=== PATIENT | female | born 1945 | race Caucasian/White ===

== ENCOUNTER → 2018-06-24 | Outpatient (CLI) | payer MEDICARE, OTHER ==
[~2018-06-24] MED LIST: DOCU-109 PO; IBUP-1060 PO; MULT1TAB52 PO; OMEP40CA5 PO; OXYC1TAB15 PO; ROPI4TAB10 PO; VALS80TA3 PO
--- NOTE | 2018-06-24 13:06 | KCIC ---
EXAM: Lumbar spine, 3 views. HISTORY: Pain. COMPARISON: None. FINDINGS: Lateral neutral, flexion and extension views of the lumbar spine are obtained. There is grade 1 anterolisthesis of L4 and L5 which measures 5 mm in neutral position and increases to 7 mm with flexion and decreases to 4 mL with extension. There is 3 mm retrolisthesis of L2 on L3 and neutral position which decreases to 2 mm with flexion and does not change with extension. There is 2 mm retrolisthesis of L1 on L2 during extension. There is degenerative endplate remodeling with disc space narrowing, osteophytosis and facet arthropathy predominantly at L1-L2 and L5-S1. No fracture is seen. IMPRESSION: 1. Multilevel degenerative change throughout the lumbar spine, described in detail above. The findings are most significant at L1-L2 and L5-S1. 2. Grade 1 anterolisthesis of L4 on L5 which changes between flexion and extension. There is also minimal retrolisthesis of L2 on L3 which minimally changes during flexion and there is minimal retrolisthesis of L1 on L2 only during extension. 3. No acute osseous finding. Electronically signed by: Sirisha Sandoval MD (06/24/2018 1:03 PM) [place] [id number]
== END | disposition home or self-care (01) ==
LOC: KCIC 12:28
PROVIDERS: ATTEND Neurological Surgery
DX: M47.817 Spondylosis without myelopathy or radiculopathy, lumbosacral region (principal); M48.07 Spinal stenosis, lumbosacral region
CPT/HCPCS: 72100

== ENCOUNTER 2018-07-17 08:00 | Inpatient (IN) | payer MEDICARE, OTHER ==
--- NOTE | 2018-07-16 16:02 | PREOP HP ---
DATE OF SERVICE: 07/17/2018 James Barclay dictating for Dr. Richard Cabrera. HISTORY OF PRESENT ILLNESS: The patient is a pleasant 72-year-old who is having difficulty with low back pain along with pain, which radiates into her right hip. The pain can radiate into the lateral thigh. The problem has been present for a few years, but has worsened over the last year. She rates her pain as an 8/10. Standing and walking increase her discomfort. Sitting helps her. She feels when she stands or walks any distance, both legs can feel weak. She has not fallen. She takes Motrin. She has had physical therapy, which she said made her symptoms worse. Epidural steroid injections were done in 2018 and 2017. They gave her no benefit. PAST MEDICAL HISTORY: Arthritis, gout, hypertension, artificial knees. PAST SURGICAL HISTORY: Bilateral knee replacement, cataract surgery, hysterectomy, cervical fusion, bilateral lift, carpal tunnel release. FAMILY HISTORY: Cancer and hypertension. 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 . Smokes half pack of cigarettes per day and has for 50 years. Drinks alcohol 1-2 times per month. ALLERGIES: LATEX AND CODEINE. CURRENT MEDICATIONS: Motrin, Diovan, hydrochlorothiazide, ropinirole, omeprazole, multivitamin, aspirin. REVIEW OF SYSTEMS: A 12-point review of systems was obtained and is noncontributory except for that mentioned above. PHYSICAL EXAMINATION: NEUROSURGERY EXAMINATION: GENERAL APPEARANCE: Alert, pleasant, no acute distress. HEAD: Normocephalic and atraumatic. SKIN: Warm and dry. MUSCULOSKELETAL: Lumbar paraspinal muscle bulk is normal, restricted range of motion of the lumbar spine, [id number] tenderness of the lower lumbar spine with palpation, normal range of motion of the lower extremities, bilaterally. EXTREMITIES: No clubbing, cyanosis or edema. NEUROLOGIC: Alert and oriented x 3, normal recent and remote memory. Strength 5/5 in bilateral upper and lower extremities, sensory was intact to light touch in bilateral lower extremities, reflexes are present and symmetric in lower extremities bilaterally, negative straight leg raising bilaterally, normal gait. IMAGING: Reviewed. I reviewed her lumbar MRI scan from 05/30/2018. On that study, there is a grade 1 anterolisthesis seen at L4-L5. At L3-L4, there is severe central canal stenosis, which has progressed since her previous study, which was done in 08/2017. Additionally, at L4-L5, there is moderately severe central canal stenosis. ASSESSMENT: 1. Spinal stenosis, lumbar region with neurogenic claudication. 2. Spondylolisthesis, lumbar region. PLAN: She is having difficulties at L3-L4 and L4-L5, which I feel are reflected in her lower extremity symptoms. I am going to have her undergo lumbar flexion and extension films. At a minimum, she would require laminectomy at L3-L4 and L4-L5 to decompress her with regard to the lumbar spinal stenosis. If there is motion seen at L4-L5, she will in addition require an instrumented lumbar fusion. I did discuss this with her including the techniques of each, and the risks and expected postoperative course. She would like to proceed. We will make the arrangements. RICHARD CABRERA MD DR: ELIDIA/sharifa JOB#: [id number] / [id number]
[2018-07-17] VITALS (7 sets, daily range): BP systolic 120–137; BP diastolic 52–77
[~2018-07-17] VITALS: Ht 167.6 cm; Wt 86.6 kg
[~2018-07-17 08:00] MED LIST changes: +BACITRACIN 50,000 UNIT in IV NORMAL SALINE 1000ML BAG 1,000 ML IRR ONE; +BUPIVAC MPF-EPI 0.5%-1:200000 30 ML VIAL. ONE; -DOCU-109 PO; +GELATIN SPONGE SIZE 12-7MM SPONGE. ONE; +IV RINGERS,LACTATED 1000ML 1,000 ML IV SCH; +KETOROLAC 60 MG/2 ML INJ FOR OR. ONE; +LIDOCAINE 1% PF 2 ML VIAL. ID PRN; +ONDANSETRON PF 4 MG/2 ML VIAL. IV PRN; -OXYC1TAB15 PO; +PROCHLORPERAZINE 10 MG/2 ML VIAL. IV PRN; +THROMBIN TOPICAL 20,000 UNIT SPRAY.SYRN KIT TP ONE; +fentaNYL PF VIAL 100 MCG/2 ML VIAL IV PRN
[2018-07-17] MEDS ORDERED: PROPOFOL 200 ML IV ONE (08:33)
[2018-07-17] MEDS ORDERED: DEXAMETHASONE SOD PHOS 20 MG/5 ML VIAL. ONE (09:24)
[2018-07-17] MEDS ORDERED: FAMOTIDINE 20 MG/2 ML VIAL ONE (09:24)
[2018-07-17] MEDS ORDERED: PROPOFOL 20 ML IV ONE (09:24)
[2018-07-17] MEDS ORDERED: LIDOCAINE 2% PF 5 ML VIAL. ONE (09:24)
[2018-07-17] MEDS ORDERED: ONDANSETRON PF 4 MG/2 ML VIAL. ONE (09:24)
[2018-07-17] MEDS ORDERED: HYDROmorphone 2 MG/ML VIAL ONE (09:25)
[2018-07-17] MEDS ORDERED: fentaNYL PF VIAL 100 MCG/2 ML VIAL ONE ×2 (09:25→16:46)
[2018-07-17] MEDS ORDERED: REMIFENTANIL 2 MG VIAL. IV ONE ×2 (09:25→13:49)
[2018-07-17] MEDS ORDERED: ROCURONIUM 50 MG/5 ML VIAL. ONE (09:25)
[2018-07-17] MEDS ORDERED: MIDAZOLAM HCL/PF 2 MG/2 ML VIAL. ONE (09:25)
[2018-07-17] MEDS ORDERED: 0.9 % SODIUM CHLORIDE 20 ML VIAL. IJ ONE ×4 (09:29→13:49)
--- NOTE | 2018-07-17 10:32 | RAD ---
CT STUDY OF THE LUMBAR SPINE WITHOUT CONTRAST INDICATIONS: Back pain. Lumbar stenosis. TECHNIQUE: Noncontrast helical CT scanning of the lumbar spine was performed. Multiplanar 2-D reconstructions were generated. PQRS compliance Statement One or more of the following individualized dose reduction techniques were utilized for this study: 1. Automated exposure control 2. Adjustment of the mA and/or kV according to patient size 3. Use of iterative reconstruction technique FINDINGS: Mild levoscoliosis is seen. The transverse processes are intact. No compression fracture or discitis or lytic process is seen. No spondylolysis is seen. At T12-L1, degenerative disc space narrowing and endplate spurring and degenerative vacuum disc phenomenon is seen. No significant focal disc protrusion or spinal canal stenosis or neural foraminal narrowing is seen. At L1-L2, degenerative disc space narrowing and endplate spurring and degenerative vacuum disc phenomenon is seen. This is more prominent on the right side and extends into the inferior aspect of the right neural foramen. There is moderate narrowing of the right neural foramen. There is narrowing of the right lateral recess due to facet spurring and endplate spurring. No significant spinal canal stenosis is seen. At L2-3, mild retrolisthesis is seen. There is mild disc space narrowing and there is degenerative vacuum disc phenomenon with mild degenerative endplate spurring. There is a mild diffuse disc protrusion present. Degenerative facet arthropathy is evident. These findings combine to form a mild spinal canal stenosis. There is mild narrowing of the right neural foramen. At L3-4, mild degenerative endplate spurring and mild disc space narrowing is seen. There is degenerative vacuum disc phenomenon. There is a mild diffuse disc protrusion. There is degenerative facet arthropathy and ligamentum flavum hypertrophy. These findings combine to form a moderate to severe spinal canal stenosis. There is mild narrowing of the neural foramina bilaterally. At L4-5, grade 1 anterolisthesis is seen along with mild degenerative endplate spurring and diffuse disc protrusion. Degenerative vacuum disc phenomenon and space narrowing is seen on the left side. Degenerative facet nephropathy ligamentum flavum hypertrophy is seen. These findings combine to form a moderate to severe spinal canal stenosis. This is more severe on the left side. There is moderate narrowing of the left neural foramen. At L5-S1, degenerative endplate spurring and degenerative vacuum disc phenomenon and degenerative disc space narrowing is seen. There is a mild diffuse disc protrusion. Facet arthropathy and ligamentum flavum hypertrophy is seen. No significant spinal canal stenosis is seen. There is mild narrowing of the right neural foramen and moderate narrowing of the left neural foramen. IMPRESSION: Degenerative lumbar spondylosis and mild scoliosis. Multilevel spinal canal stenosis and neural foraminal narrowing as discussed above. There is moderate to severe spinal canal stenosis at L3-4 and L4-5. See discussion above for each level. Electronically signed by: Donald Duran MD (07/17/2018 10:29 AM) [facility]
[2018-07-17] MEDS ORDERED: GLYCOPYRROLATE 1 MG/5 ML VIAL. ONE (10:55)
[2018-07-17] MEDS ORDERED: ePHEDrine PF IN SALINE 50 MG/10 ML SYRINGE. IV ONE ×2 (11:02→15:46)
[2018-07-17] MEDS ORDERED: MAG HYDROX/ALUMINUM HYD/SIMETH 30 ML ORAL.SUSP PO PRN (13:15)
[2018-07-17] MEDS ORDERED: NALOXONE 0.4 MG/ML VIAL. IV PRN (13:15)
[2018-07-17] MEDS ORDERED: CALCIUM CARBONATE 500 MG TAB.CHEW PO PRN (13:15)
[2018-07-17] MEDS ORDERED: ONDANSETRON PF 4 MG/2 ML VIAL. IV PRN (13:15)
[2018-07-17] MEDS ORDERED: ACETAMINOPHEN 325 MG TABLET. PO PRN (13:15)
[2018-07-17] MEDS ORDERED: 0.9 % SODIUM CHLORIDE 10 ML DISP.SYRIN. IV PRN (13:15)
[2018-07-17] MEDS ORDERED: diphenhydrAMINE HCL 25 MG CAPSULE PO PRN (13:15)
[2018-07-17] MEDS ORDERED: MAGNESIUM HYDROXIDE 2,400 MG/30 ML ORAL.SUSP. PO PRN (13:15)
[2018-07-17] MEDS ORDERED: DESFLURANE > 120 MINUTES IH ONE (13:31)
[2018-07-17] MEDS ORDERED: ceFAZolin SODIUM 1 GM in IV DEXTROSE 5% 50 ML IV SCH (14:00)
[2018-07-17] MEDS ORDERED: ceFAZolin SODIUM 1 GM VIAL ONE ×2 (14:56)
[2018-07-17] MEDS ORDERED: NEOSTIGMINE METHYLSULFATE 5 MG/5 ML SYRINGE. ONE (15:38)
[2018-07-17] MEDS: fentaNYL PF VIAL 100 MCG/2 ML VIAL IV PRN ×2 (16:52→17:15)
--- NOTE | 2018-07-17 17:45 | NUR ---
Received from PACU per bed, alert & drowsy, lumbar dressing clean, dry & intact, states discomfort level ?06/04, unsure, ice pack to lumbar for pain, bilateral NONA & ALLEY hose for DVT prevention, IVF infusing into right, HERRERA, oriented to surroundings, family members at bedside, call light within reach, side rails x 2, see admission information.
[2018-07-17] MEDS: DOCUSATE SODIUM 100 MG CAPSULE. PO SCH (21:14)
[2018-07-17] MEDS: rOPINIRole 1 MG TABLET. PO SCH (21:15)
[2018-07-17] MEDS: POTASSIUM CL 20MEQ D5-0.45NACL 1,000 ML IV SCH (21:17)
[2018-07-17] MEDS: ceFAZolin SODIUM IV Push 1 GM VIAL. IVP SCH (22:37)
[2018-07-18] VITALS (8 sets, daily range): BP systolic 104–127; BP diastolic 45–77
[2018-07-18] MEDS: fentaNYL PF VIAL 100 MCG/2 ML VIAL IV PRN ×4 (01:31→12:57)
[2018-07-18] MEDS: POTASSIUM CL 20MEQ D5-0.45NACL 1,000 ML IV SCH (05:20)
[2018-07-18] MEDS: ceFAZolin SODIUM IV Push 1 GM VIAL. IVP SCH ×2 (06:54→15:28)
[2018-07-18] MEDS: PANTOPRAZOLE 40 MG TABLET.DR. PO SCH (07:13)
[2018-07-18] MEDS ORDERED: BENZOCAINE/MENTHOL LOZENGE. PO PRN (07:30)
[2018-07-18] MEDS ORDERED: ALBUTEROL SULFATE 2.5 MG/3 ML NEBU. NEB PRN (07:30)
[2018-07-18] MEDS: METHOCARBAMOL 750 MG TABLET PO PRN ×3 (08:47→20:50)
[2018-07-18] MEDS: DOCUSATE SODIUM 100 MG CAPSULE. PO SCH ×2 (08:47→20:50)
[2018-07-18] MEDS: MULTIVITAMIN with MINERAL TABLET. PO SCH (08:47)
[2018-07-18] MEDS: rOPINIRole 1 MG TABLET. PO SCH ×4 (08:48→20:50)
[2018-07-18] MEDS: LOSARTAN POTASSIUM 50 MG TABLET. PO SCH (08:54)
[2018-07-18] MEDS ORDERED: HYDROcodone/APAP 7.5/325MG 1 TAB TABLET PO PRN (09:00)
--- NOTE | 2018-07-18 12:36 | NUR ---
VAN following for discharge planning. Discussed with RN, pt from home with family. VAN met with pt and pt's daughter, Liana at pt request. Pt would like to go to [facility] for SNU if she is not doing better in the next few days. VAN advised pt would need 3 midnights, and advised of the holiday this Saturday, so it would be likely pt would discharge to SNU on Saturday. If pt is feeling better over the weekend she is agreeable to [facility] for therapy. VAN faxing notes to [facility] to give a heads up of a possible admit over the weekend. If pt discharges home over the weekend, she will be going to stay at her daughter, Liana's home at [facility] [place], [address]. RN notified. VAN will continue to follow.
--- NOTE | 2018-07-18 15:09 | PDOC ---
PROGRESS NOTES Subjective Subjective patient seen and examined at 1100 sitting up on side of bed back / incisional pain ambulated with PT Objective Objective Vital Signs Date Time Temp Pulse Resp B/P (MAP) Pulse Ox O2 Delivery O2 Flow Rate FiO2 07/18/18 13:32 Room Air 07/18/18 12:57 95 07/18/18 11:00 97.4 71 20 127/49 (75) 97.4 07/18/18 03:00 2.0 Intake and Output 07/18/18 06:59 Intake Total 2665 ml Output Total 1075 ml Balance 1590 ml Intake Oral 15 ml IV Total 2650 ml Output Urine Total 950 ml Estimated Blood Loss 125 ml Physical Exam General: Alert, Oriented X3, Cooperative MUSCULOSKELETAL: Other (HERRERA) Skin: Other (Dressing C,D,I) Plan Plan of Care encouraged increased activity as tolerated PT change PO pain medication LSO ordered Dr. Boothe consulted Comment Review of Relevant I have reviewed the following items melody (where applicable) has been applied. Medications Current Medications Ondansetron HCl (Zofran) 4 mg PRN Q6HRS PRN IV NAUSEA/VOMITING Last administered on 07/17/18at 08:51; Start 07/17/18 at 07:00; Stop 07/17/18 at 18:20; Status DC Fentanyl Citrate (Fentanyl 2ml Vial) 25 mcg PRN Q5MIN PRN IV MILD PAIN 1-3; Start 07/17/18 at 07:00; Stop 07/17/18 at 18:20; Status DC Fentanyl Citrate (Fentanyl 2ml Vial) 50 mcg PRN Q5MIN PRN IV MODERATE TO SEVERE PAIN Last administered on 07/17/18at 17:15; Start 07/17/18 at 07:00; Stop 07/17/18 at 18:20; Status DC Ringer's Solution 1,000 ml @ 30 mls/hr Q24H IV Last administered on 07/17/18at 08:42; Start 07/17/18 at 07:00; Stop 07/17/18 at 18:20; Status DC Lidocaine HCl (Xylocaine-Mpf 1% 2ml Vial) 2 ml PRN 1X PRN ID PRIOR TO IV START; Start 07/17/18 at 07:00; Stop 07/17/18 at 18:20; Status DC Prochlorperazine Edisylate (Compazine) 5 mg PACU PRN PRN IV NAUSEA, MRX1; Start 07/17/18 at 07:00; Stop 07/17/18 at 18:20; Status DC Bacitracin 93698 unit/Sodium Chloride 1,000 ml @ 1,000 mls/hr 1X ONCE IRR Last administered on 07/17/18 11:36; Start 07/17/18 at 06:00; Stop 07/17/18 at 06:59; Status DC Cefazolin Sodium/ Dextrose 50 ml @ 100 mls/hr 1X PREOP PRN IV PRIOR TO PROCEDURE; Start 07/17/18 at 06:00; Stop 07/17/18 at 18:00; Status DC Bupivacaine HCl/ Epinephrine Bitart (Sensorcain-Mpf Epi 0.5%-1:[id number]) 30 ml STK-MED ONCE .ROUTE Last administered on 07/17/18 11:36; Start 07/17/18 at 06:15; Stop 07/17/18 at 07:15; Status DC Gelatin (Gelfoam Size 12-7mm) 1 each STK-MED ONCE .ROUTE Last administered on 07/17/18 11:36; Start 07/17/18 at 06:15; Stop 07/17/18 at 07:15; Status DC Ketorolac Tromethamine (Toradol For Or Only) 60 mg STK-MED ONCE .ROUTE Last administered on 07/17/18 11:36; Start 07/17/18 at 06:15; Stop 07/17/18 at 07:15; Status DC Thrombin 20,000 unit STK-MED ONCE TP Last administered on 07/17/18 11:36; Start 07/17/18 at 06:15; Stop 07/17/18 at 07:15; Status DC Propofol 20 ml @ As Directed STK-MED ONCE IV ; Start 07/17/18 at 09:24; Stop 07/17/18 at 09:25; Status DC Lidocaine HCl (Lidocaine Pf 2% Vial) 5 ml STK-MED ONCE .ROUTE ; Start 07/17/18 at 09:24; Stop 07/17/18 at 09:25; Status DC Dexamethasone Sodium Phosphate (Decadron) 20 mg STK-MED ONCE .ROUTE ; Start 07/17/18 at 09:24; Stop 07/17/18 at 09:25; Status DC Famotidine (Pepcid Vial) 20 mg STK-MED ONCE .ROUTE ; Start 07/17/18 at 09:24; Stop 07/17/18 at :25; Status DC Ondansetron HCl (Zofran) 4 mg STK-MED ONCE .ROUTE ; Start 07/17/18 at 09:24; Stop 07/17/18 at 09:25; Status DC Fentanyl Citrate (Fentanyl 2ml Vial) 100 mcg STK-MED ONCE .ROUTE ; Start 07/17/18 at 09:25; Stop 07/17/18 at :; Status DC Rocuronium [place] (Zemuron) 50 mg STK-MED ONCE .ROUTE ; Start 07/17/18 at 09:25; Stop 07/17/18 at :; Status DC Hydromorphone HCl (Dilaudid) 2 mg STK-MED ONCE .ROUTE ; Start 07/17/18 at 09:25; Stop 07/17/18 at 09:26; Status DC Remifentanil HCl (Ultiva) 2 mg STK-MED ONCE IV ; Start 07/17/18 at 09:25; Stop 07/17/18 at 09:26; Status DC Midazolam HCl (Versed) 2 mg STK-MED ONCE .ROUTE ; Start 07/17/18 at 09:25; Stop 07/17/18 at 09:26; Status DC Sodium Chloride (SODIUM CHLORIDE 20ml) 20 ml STK-MED ONCE IJ ; Start 07/17/18 at 09:29; Stop 07/17/18 at 09:30; Status DC Sodium Chloride (SODIUM CHLORIDE 20ml) 20 ml STK-MED ONCE IJ ; Start 07/17/18 at 09:29; Stop 07/17/18 at 09:30; Status DC Propofol 200 ml @ As Directed STK-MED ONCE IV ; Start 07/17/18 at 08:33; Stop 07/17/18 at 09:34; Status DC Glycopyrrolate (Robinul) 1 mg STK-MED ONCE .ROUTE ; Start 07/17/18 at 10:55; Stop 07/17/18 at 10:56; Status DC Ephedrine Sulfate (ePHEDrine PF IN SALINE SYRINGE) 50 mg STK-MED ONCE IV ; Start 07/17/18 at 11:02; Stop 07/17/18 at 11:03; Status DC Multivitamins (Thera M Plus) 1 tab DAILY PO Last administered on 07/18/18 08:47; Start 07/18/18 at 09:00 Pantoprazole Sodium (Protonix) 40 mg DAILYAC PO Last administered on 07/18/18 07:13; Start 07/18/18 at 07:30 Ropinirole HCl (Requip) 4 mg QID PO Last administered on 07/18/18at 13:04; Start 07/17/18 at 21:00 Losartan Potassium (Cozaar) 50 mg DAILY PO ; Start 07/18/18 at 09:00 Fentanyl Citrate (Fentanyl 2ml Vial) 50 mcg PRN Q2HR PRN IV PAIN SEVERE 2ND CHOICE Last administered on 07/18/18at 12:57; Start 07/17/18 at 13:15 Acetaminophen (Tylenol) 650 mg PRN Q6HRS PRN PO HEADACHE / TEMP; Start 07/17/18 at 13:15 Al Hydroxide/Mg Hydroxide (Mylanta Plus Xs) 30 ml PRN Q3HRS PRN PO HEARTBURN / GAS; Start 07/17/18 at 13:15 Calcium Carbonate/ Glycine (Tums) 500 mg PRN Q3HRS PRN PO INDIGESTION; Start 07/17/18 at 13:15 Diphenhydramine HCl (Benadryl) 25 mg PRN Q6HRS PRN PO ITCHING; Start 07/17/18 at 13:15 Naloxone HCl (Narcan) 0.1 mg PRN Q2MIN PRN IV ADMIN; Start 07/17/18 at 13:15 Sodium Chloride (Normal Saline Flush) 3 ml QSHIFT PRN IV AFTER MEDS AND BLOOD DRAWS; Start 07/17/18 at 13:15 Potassium Chloride/Dextrose/ Sod Cl 1,000 ml @ 75 mls/hr [id number] IV Last administered on 07/17/18at 21:17; Start 07/17/18 at 16:00; Stop 07/18/18 at 10:19; Status DC Methocarbamol (Robaxin) 750 mg TID PRN PO MUSCLE SPASMS Last administered on 07/18/18 08:47; Start 07/17/18 at 13:15 Docusate Sodium (Colace) 100 mg BID PO Last administered on 5/24/19at 08:47; Start 07/17/18 at 21:00 Magnesium Hydroxide (Milk Of Magnesia) 2,400 mg PRN Q12HR PRN PO CONSTIPATION; Start 07/17/18 at 13:15 Ondansetron HCl (Zofran) 4 mg PRN Q6HRS PRN IV NAUESA, 1ST CHOICE; Start 07/17/18 at 13:15 Cefazolin Sodium 1 gm/Dextrose 50 ml @ 100 mls/hr Q8HRS IV ; Start 07/17/18 at 14:00; Stop 07/18/18 at 06:29; Status UNV Desflurane (Suprane) 90 ml STK-MED ONCE IH ; Start 07/17/18 at 13:31; Stop 07/17/18 at 13:32; Status DC Sodium Chloride (SODIUM CHLORIDE 20ml) 20 ml STK-MED ONCE IJ ; Start 07/17/18 at 13:49; Stop 07/17/18 at 13:50; Status DC Sodium Chloride (SODIUM CHLORIDE 20ml) 20 ml STK-MED ONCE IJ ; Start 07/17/18 at 13:49; Stop 07/17/18 at 13:50; Status DC Remifentanil HCl (Ultiva) 2 mg STK-MED ONCE IV ; Start 07/17/18 at 13:49; Stop 07/17/18 at 13:50; Status DC Cefazolin Sodium (Ancef) 1 gm STK-MED ONCE .ROUTE ; Start 07/17/18 at 14:56; Stop 07/17/18 at 14:57; Status DC Cefazolin Sodium (Ancef) 1 gm STK-MED ONCE .ROUTE ; Start 07/17/18 at 14:56; Stop 07/17/18 at 14:57; Status DC Neostigmine Methylsulfate (Neostigmine Methylsulfate) 5 mg STK-MED ONCE .ROUTE ; Start 07/17/18 at 15:38; Stop 07/17/18 at 15:39; Status DC Cefazolin Sodium (Ancef) 1 gm Q8H IVP Last administered on 07/18/18at 06:54; Start 07/17/18 at 23:00; Stop 07/18/18 at 15:01; Status DC Ephedrine Sulfate (ePHEDrine PF IN SALINE SYRINGE) 50 mg STK-MED ONCE IV ; Start 07/17/18 at 15:46; Stop 07/17/18 at 15:47; Status DC Fentanyl Citrate (Fentanyl 2ml Vial) 100 mcg STK-MED ONCE .ROUTE ; Start 07/17/18 at 16:46; Stop 07/17/18 at 16:47; Status DC Throat Lozenges (Cepacol Sore Throat Lozenge) 1 fili PRN Q2HRS PRN PO SORE THROAT Last administered on 07/18/18at 07:51; Start 07/18/18 at 07:30 Albuterol Sulfate (Ventolin Neb Soln) 2.5 mg PRN Q4HRS PRN NEB SHORTNESS OF B REATH Last administered on 07/18/18at 09:10; Start 07/18/18 at 07:30 Acetaminophen/ Hydrocodone Bitart (Lortab 7.5/325) 1 tab PRN Q4HRS PRN PO PAIN Last administered on 07/18/18at 10:55; Start 07/18/18 at 09:00; Stop 07/18/18 at 11:48; Status DC Oxycodone/ Acetaminophen (Percocet 5/325) 1 tab PRN Q4HRS PRN PO PAIN; Start 07/18/18 at 12:00 Oxycodone/ Acetaminophen (Percocet 5/325) 2 tab PRN Q4HRS PRN PO PAIN; Start 07/18/18 at 12:00 Active Scripts Active Reported Multivitamins (Multivitamin) 1 Each Tablet 1 Tab PO DAILY Ibuprofen 800 Mg Tablet 800 Mg PO PRN BID PRN Ropinirole Hcl 4 Mg Tablet 4 Mg PO QID Omeprazole 40 Mg Capsule. 1 Cap PO DAILY Diovan (Valsartan) 80 Mg Tablet 80 Mg PO DAILY Vitals/I & O Vital Sign - Last 24 Hours 07/17/18 07/17/18 07/17/18 07/17/18 16:20 16:20 16:35 16:50 Temp 98.5 98.5 Pulse 92 88 78 Resp 16 18 16 B/P (MAP) 117/59 133/63 132/65 Pulse Ox 100 100 96 O2 Delivery Mask Simple Mask Nasal Cannula Nasal Cannula O2 Flow Rate 8 8 2 2 07/17/18 07/17/18 07/17/18 07/17/18 16:52 17:05 17:15 17:15 Temp 98.5 98.5 Pulse 76 Resp 14 19 18 B/P (MAP) 134/64 Pulse Ox 94 96 97 O2 Delivery Nasal Cannula Nasal Cannula Nasal Cannula Nasal Cannula O2 Flow Rate 2.0 2 2.0 2 07/17/18 07/17/18 07/17/18 07/17/18 17:45 17:45 17:45 18:00 Temp 97.7 97.7 Pulse 75 78 B/P (MAP) 137/60 (85) 120/60 (80) Pulse Ox 96 O2 Delivery Nasal Cannula Nasal Cannula O2 Flow Rate 2.0 07/17/18 07/17/18 07/17/18 07/17/18 18:15 18:30 18:57 19:00 Temp 97.5 97.5 Pulse 85 86 84 78 Resp 20 B/P (MAP) 128/58 (81) 122/52 (75) 125/62 (83) 122/52 (75) Pulse Ox 96 96 O2 Delivery Nasal Cannula O2 Flow Rate 2.0 2.0 07/17/18 07/17/18 07/18/18 07/18/18 20:00 23:00 01:31 02:01 Temp 98.3 98.3 Pulse 77 Resp 20 18 18 B/P (MAP) 124/77 (93) Pulse Ox 93 O2 Delivery Room Air Nasal Cannula Room Air O2 Flow Rate 2.0 07/18/18 07/18/18 07/18/18 07/18/18 03:00 07:00 08:15 08:48 Temp 98.2 97.8 98.2 97.8 Pulse 71 70 Resp 20 20 B/P (MAP) 113/50 (71) 117/45 (69) Pulse Ox 96 95 O2 Delivery Nasal Cannula Room Air Room Air Room Air O2 Flow Rate 2.0 07/18/18 07/18/18 07/18/18 07/18/18 08:54 09:15 10:55 10:55 Pulse 70 B/P (MAP) 117/45 Pulse Ox 95 O2 Delivery Room Air Room Air Room Air 07/18/18 07/18/18 07/18/18 11:00 12:57 13:32 Temp 97.4 97.4 Pulse 71 Resp 20 B/P (MAP) 127/49 (75) Pulse Ox 95 95 O2 Delivery Room Air Room Air Room Air Intake and Output 07/17/18 07/17/18 07/18/18 14:59 22:59 06:59 Intake Total 50 ml 2615 ml Output Total 825 ml 250 ml Balance 50 ml 1790 ml -250 ml JUICE CABRERA MD July 18, 2018 15:09
[2018-07-18] MEDS: oxyCODONE/APAP 5/325 1 TAB TABLET PO PRN ×2 (15:27→20:51)
[2018-07-18] MEDS ORDERED: SENNOSIDES/DOCUSATE 8.6/50MG TABLET. PO PRN (16:15)
[2018-07-18] MEDS ORDERED: MAGNESIUM HYDROXIDE 2,400 MG/30 ML ORAL.SUSP. PO PRN (16:15)
--- NOTE | 2018-07-18 18:22 | OP ---
DATE OF SURGERY: 07/17/2018 PREOPERATIVE DIAGNOSES: Lumbar spinal stenosis L3-L4, L4-L5; spondylolisthesis, L4-L5. POSTOPERATIVE DIAGNOSES: Lumbar spinal stenosis L3-L4, L4-L5; spondylolisthesis, L4-L5, synovial cyst, right L3-L4. OPERATION PERFORMED: 1. Lumbar laminectomy, L3-L4 and L4-L5. 2. Removal of synovial cyst, right L3-L4. 3. Posterior instrumentation L3, L4, L5 with posterolateral fusion L3, L4, L5. 4. The operation was done with multimodality monitoring including EMG, stimulated EMG, SSEP, fluoroscopy, microscopic dissection, BrainLAB guidance. SURGEON: Richard Cabrera M.D. STATION SUPERINTENDENT: ALBANIA Espinal assisted with the surgery. She assisted with the decompression, the instrumentation and removal of synovial cyst. OPERATIVE INDICATIONS: The patient is a pleasant 72-year-old who developed increasing pain in her lower back and then pain in her right leg, which became very severe and failed to improve with physical therapy as well as epidural steroid injections. On imaging studies, she was found to have severe stenosis at L3-L4 and moderately severe stenosis at L4-L5 along with spondylolisthesis at L4-L5 and I recommended decompression and instrumentation. I spoke with her about the surgery, the risks, technique and expected postoperative course and she wished to go ahead. DESCRIPTION OF PROCEDURE: Following general endotracheal anesthesia, the patient was positioned prone on the Salazar table. Lumbar region prepped and draped in standard fashion. ALLEY hose and AV impulse boots were applied for DVT prophylaxis. A microscope was draped. Fluoroscopy was draped and brought into the field. Monitoring was established. Ancef 2 grams was given less than 1 hour prior to initiation of surgery and repeated at 4-hour intervals as necessary. Using fluoroscopic guidance, a midline incision was made from L3 through L5. I dissected down skin and subcutaneous tissue, reflected the paraspinal muscles and placed self-retaining retractors. I then brought in the high speed air drill with a conical bur and drilled away the spinous processes of L3, L4, and L5. I then switched to a matchstick type bur and drilled the lamina of L3, L4 and L5. I did leave a portion of the ring at the middle lamina at the mid portion of L4 where there was no stenosis beneath, but otherwise I had a wide decompression out into the facets bilaterally, decompressing the dura and the nerve roots. At L3-L4, there was a synovial cyst, which was densely adherent to the underlying dura and compressing the nerve roots, pushing them medially and I this from the dura and nerve root with micro instruments. Through the microscope using microscopic technique, I peeled away the synovial cyst and I fully decompressed the entire region. The disc was firm, no discectomy was warranted and the disc at L4-L5 was also firm. I did perform partial foraminotomies focusing slightly more on the right hand side, which was the most painful side. I irrigated copiously. I did use small amounts of bone wax as well as a bipolar cautery where necessary. I then initialized the BrainLAB by attaching it to the spinous process inferiorly and placed pedicle screws in L3, L4, L5, first on the left side and then on the right side and during this time, I also exposed the transverse processes and lateral facets and excoriated disc material and packed allograft and autograft bone into these regions after aspirating 20 mL of bone marrow and augmenting the autograft bone from the laminectomy with allograft bone. This was packed first in the left lateral gutter and then in the right lateral gutter and then using [employer] instrumentation, I placed 5.5 x 45 screws in L3, 6.5 screws in L4 and L5. Rods were placed and nuts were placed and torqued. The films looked excellent. I irrigated copiously with antibiotic solution. I then felt that I had an excellent decompression. The roots were free. The stenosis had resolved. I sequentially torqued the hardware and then closed the wound with absorbable suture. The skin was closed with 4-0 subcuticular stitch. I felt the surgery went very well. RICHARD CABRERA MD DR: ELIDIA/sharifa JOB#: [id number] / [id number] LEEROY
--- NOTE | 2018-07-19 01:09 | CONS ---
DATE OF CONSULTATION: 07/18/2018 ATTENDING PHYSICIAN: Richard Chiu M.D. REASON FOR CONSULTATION: The patient was seen at the request of Dr. Chiu for rehab evaluation. HISTORY OF PRESENT ILLNESS: This is a 72-year-old female with chronic lower back pain with radiation to her right hip area and lateral aspect of thigh, going on for a few years, worsened over the last year. The patient had gone through lumbar epidural steroid injection, without any lasting help. She feels like when she stands and walks any distance, both legs get weak; has not fallen. She takes Motrin. She had gone through physical therapy, which made symptoms worse. PAST MEDICAL HISTORY: Includes degenerative joint disease, status post bilateral total knee arthroplasty, gouty arthritis, hypertension, cataract surgery, hysterectomy, cervical spine fusion and bilateral carpal tunnel release. FAMILY HISTORY: Family history of carcinoma and hypertension. 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 The patient had 6 steps to get in the house, no railing. 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 Smokes half pack of cigarettes per day for the last 50 years. Drinks alcohol 1-2 times per month. ALLERGIES: KNOWN ALLERGIC TO LATEX AND CODEINE. The patient also admits not passing gas since surgery done yesterday, that is on 07/17/2018, cervical decompression laminectomy for treatment of lumbar spinal stenosis. Postoperatively, she admits some numbness and tingling, mostly over the lateral aspect of both thighs, which was not present before. She admits to some back pain. She received lumbar corset today and feels comfortable wearing it. The patient is being followed by Physical Therapy. Physical Therapy recommended her to go to [facility] for continued care, at least for a short period. The patient denies any trouble with urination. PHYSICAL EXAMINATION: Today revealed an elderly female. She is alert, oriented to place and person, follows commands appropriately. Moves all 4 extremities voluntarily, where she had 4+/5 grade muscle strength and deep tendon reflexes were 1 to 2+ and symmetrical, with absent right ankle jerk. She had decreased sensory perception over lateral femoral cutaneous nerve distribution in both thighs. The patient had dressing to her lumbar spine area. She had clinical evidence of degenerative joint disease of thumb carpometacarpal joint bilaterally, with some deformity of both thumbs. Negative Tinel sign over median nerve at the wrist and over ulnar at the wrist and elbow and negative Phalen sign at both wrists. The patient is independent with bed mobility and transfers and she walked slowly using a roller walker, with somewhat antalgic gait. She gets tired easily. She had diffuse tenderness to palpation over the lumbar spine area. Straight leg raising test is negative bilaterally. She had painful range of motion of both lower extremity joints. ASSESSMENT: Mobility and self-care limitation in a patient with continued back pain postoperatively, lumbar decompression laminectomy for treatment of lumbar spinal stenosis. Also, the patient with known hypertension, also presents with probable meralgia paresthetica of both thighs and obesity. 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 She might need short-term inpatient rehab at [facility] unless she feels more confident that she is able to perform those tasks with her stay in the next few days. Dr. Chiu, I appreciate asking me to participate in the care of this interesting patient. I will be glad to follow her with you as needed for her rehabilitation. AMY DECKER MD DR: ASTON/sharifa JOB#: [id number] / [id number]
[2018-07-19] MEDS: oxyCODONE/APAP 5/325 1 TAB TABLET PO PRN ×2 (02:45→09:48)
[2018-07-19 03:10] VITALS: BP 106/58
[2018-07-19] MEDS: PANTOPRAZOLE 40 MG TABLET.DR. PO SCH (05:41)
[2018-07-19 07:00] VITALS: BP 116/43
[2018-07-19] MEDS: MULTIVITAMIN with MINERAL TABLET. PO SCH (08:43)
[2018-07-19] MEDS: DOCUSATE SODIUM 100 MG CAPSULE. PO SCH ×2 (08:43→20:25)
[2018-07-19] MEDS: BISACODYL 5 MG TABLET.DR. PO SCH (08:44)
[2018-07-19] MEDS: LOSARTAN POTASSIUM 50 MG TABLET. PO SCH (09:00)
[2018-07-19] MEDS: rOPINIRole 1 MG TABLET. PO SCH ×4 (09:49→20:25)
--- NOTE | 2018-07-19 10:31 | PDOC ---
PROGRESS NOTES Subjective Subjective POD #2 up in chair right hip and leg pain significantly better back/ incisional pain better controlled Objective Objective Vital Signs Date Time Temp Pulse Resp B/P (MAP) Pulse Ox O2 Delivery O2 Flow Rate FiO2 07/19/18 09:48 Room Air 07/19/18 09:00 66 116/43 07/19/18 07:00 98.2 18 97 98.2 07/18/18 03:00 2.0 Intake and Output 07/19/18 07:00 Intake Total 1200 ml Output Total 200 ml Balance 1000 ml Intake Oral 1200 ml Output Urine Total 200 ml # Voids 3 Physical Exam General: Alert, Oriented X3, Cooperative MUSCULOSKELETAL: Other (HERRERA) Neuro: Normal speech Skin: Other (Dressing C,D,I, flat) Plan Plan of Care encouraged increased activity as tolerated PT Dr. Boothe following SNF next week Comment Review of Relevant I have reviewed the following items melody (where applicable) has been applied. Medications Current Medications Ondansetron HCl (Zofran) 4 mg PRN Q6HRS PRN IV NAUSEA/VOMITING Last administered on 07/17/18at 08:51; Start 07/17/18 at 07:00; Stop 07/17/18 at 18:20; Status DC Fentanyl Citrate (Fentanyl 2ml Vial) 25 mcg PRN Q5MIN PRN IV MILD PAIN 1-3; Start 07/17/18 at 07:00; Stop 07/17/18 at 18:20; Status DC Fentanyl Citrate (Fentanyl 2ml Vial) 50 mcg PRN Q5MIN PRN IV MODERATE TO SEVERE PAIN Last administered on 07/17/18at 17:15; Start 07/17/18 at 07:00; Stop 07/17/18 at 18:20; Status DC Ringer's Solution 1,000 ml @ 30 mls/hr Q24H IV Last administered on 07/17/18at 08:42; Start 07/17/18 at 07:00; Stop 07/17/18 at 18:20; Status DC Lidocaine HCl (Xylocaine-Mpf 1% 2ml Vial) 2 ml PRN 1X PRN ID PRIOR TO IV START; Start 07/17/18 at 07:00; Stop 07/17/18 at 18:20; Status DC Prochlorperazine Edisylate (Compazine) 5 mg PACU PRN PRN IV NAUSEA, MRX1; Start 07/17/18 at 07:00; Stop 07/17/18 at 18:20; Status DC Bacitracin 62288 unit/Sodium Chloride 1,000 ml @ 1,000 mls/hr 1X ONCE IRR Last administered on 07/17/18 11:36; Start 07/17/18 at 06:00; Stop 07/17/18 at 06:59; Status DC Cefazolin Sodium/ Dextrose 50 ml @ 100 mls/hr 1X PREOP PRN IV PRIOR TO PROCEDU RE; Start 07/17/18 at 06:00; Stop 07/17/18 at 18:00; Status DC Bupivacaine HCl/ Epinephrine Bitart (Sensorcain-Mpf Epi 0.5%-1:486524) 30 ml STK-MED ONCE .ROUTE Last administered on 07/17/18 11:36; Start 07/17/18 at 06:15; Stop 07/17/18 at 07:15; Status DC Gelatin (Gelfoam Size 12-7mm) 1 each STK-MED ONCE .ROUTE Last administered on 07/17/18 11:36; Start 07/17/18 at 06:15; Stop 07/17/18 at 07:15; Status DC Ketorolac Tromethamine (Toradol For Or Only) 60 mg STK-MED ONCE .ROUTE Last administered on 07/17/18 11:36; Start 07/17/18 at 06:15; Stop 07/17/18 at 07:15; Status DC Thrombin 20,000 unit STK-MED ONCE TP Last administered on 07/17/18 11:36; Start 07/17/18 at 06:15; Stop 07/17/18 at 07:15; Status DC Propofol 20 ml @ As Directed STK-MED ONCE IV ; Start 07/17/18 at 09:24; Stop 07/17/18 at 09:25; Status DC Lidocaine HCl (Lidocaine Pf 2% Vial) 5 ml STK-MED ONCE .ROUTE ; Start 07/17/18 at 09:24; Stop 07/17/18 at 09:25; Status DC Dexamethasone Sodium Phosphate (Decadron) 20 mg STK-MED ONCE .ROUTE ; Start 07/17/18 at 09:24; Stop 07/17/18 at 09:25; Status DC Famotidine (Pepcid Vial) 20 mg STK-MED ONCE .ROUTE ; Start 07/17/18 at 09:24; Stop 07/17/18 at 09:25; Status DC Ondansetron HCl (Zofran) 4 mg STK-MED ONCE .ROUTE ; Start 07/17/18 at 09:24; Stop 07/17/18 at 09:25; Status DC Fentanyl Citrate (Fentanyl 2ml Vial) 100 mcg STK-MED ONCE .ROUTE ; Start 07/17/18 at 09:25; Stop 07/17/18 at 09:26; Status DC Rocuronium [place] (Zemuron) 50 mg STK-MED ONCE .ROUTE ; Start 07/17/18 at 09:25; Stop 07/17/18 at 09:; Status DC Hydromorphone HCl (Dilaudid) 2 mg STK-MED ONCE .ROUTE ; Start 07/17/18 at 09:25; Stop 07/17/18 at 09:26; Status DC Remifentanil HCl (Ultiva) 2 mg STK-MED ONCE IV ; Start 07/17/18 at 09:25; Stop 07/17/18 at 09:26; Status DC Midazolam HCl (Versed) 2 mg STK-MED ONCE .ROUTE ; Start 07/17/18 at 09:25; Stop 07/17/18 at 09:26; Status DC Sodium Chloride (SODIUM CHLORIDE 20ml) 20 ml STK-MED ONCE IJ ; Start 07/17/18 at 09:29; Stop 07/17/18 at 09:30; Status DC Sodium Chloride (SODIUM CHLORIDE 20ml) 20 ml STK-MED ONCE IJ ; Start 07/17/18 at 09:29; Stop 07/17/18 at 09:30; Status DC Propofol 200 ml @ As Directed STK-MED ONCE IV ; Start 07/17/18 at 08:33; Stop 07/17/18 at 09:34; Status DC Glycopyrrolate (Robinul) 1 mg STK-MED ONCE .ROUTE ; Start 07/17/18 at 10:55; Stop 07/17/18 at 10:56; Status DC Ephedrine Sulfate (ePHEDrine PF IN SALINE SYRINGE) 50 mg STK-MED ONCE IV ; S tart 07/17/18 at 11:02; Stop 07/17/18 at 11:03; Status DC Multivitamins (Thera M Plus) 1 tab DAILY PO Last administered on 07/19/18 08:43; Start 07/18/18 at 09:00 Pantoprazole Sodium (Protonix) 40 mg DAILYAC PO Last administered on 07/19/18 05:41; Start 07/18/18 at 07:30 Ropinirole HCl (Requip) 4 mg QID PO Last administered on 07/19/18 09:49; Start 07/17/18 at 21:00 Losartan Potassium (Cozaar) 50 mg DAILY PO ; Start 07/18/18 at 09:00 Fentanyl Citrate (Fentanyl 2ml Vial) 50 mcg PRN Q2HR PRN IV PAIN SEVERE 2ND CHOICE Last administered on 07/18/18at 12:57; Start 07/17/18 at 13:15 Acetaminophen (Tylenol) 650 mg PRN Q6HRS PRN PO HEADACHE / TEMP; Start 07/17/18 at 13:15 Al Hydroxide/Mg Hydroxide (Mylanta Plus Xs) 30 ml PRN Q3HRS PRN PO HEARTBURN / GAS; Start 07/17/18 at 13:15 Calcium Carbonate/ Glycine (Tums) 500 mg PRN Q3HRS PRN PO INDIGESTION; Start 07/17/18 at 13:15 Diphenhydramine HCl (Benadryl) 25 mg PRN Q6HRS PRN PO ITCHING; Start 07/17/18 at 13:15 Naloxone HCl (Narcan) 0.1 mg PRN Q2MIN PRN IV ADMIN; Start 07/17/18 at 13:15 Sodium Chloride (Normal Saline Flush) 3 ml QSHIFT PRN IV AFTER MEDS AND BLOOD DRAWS; Start 07/17/18 at 13:15 Potassium Chloride/Dextrose/ Sod Cl 1,000 ml @ 75 mls/hr [id number] IV Last administered on 07/17/18at 21:17; Start 07/17/18 at 16:00; Stop 07/18/18 at 10:19; Status DC Methocarbamol (Robaxin) 750 mg TID PRN PO MUSCLE SPASMS Last administered on at 20:50; Start 07/17/18 at 13:15 Docusate Sodium (Colace) 100 mg BID PO Last administered on 5/25/19at 08:43; Start 07/17/18 at 21:00 Magnesium Hydroxide (Milk Of Magnesia) 2,400 mg PRN Q12HR PRN PO CONSTIPATION; Start 07/17/18 at 13:15 Ondansetron HCl (Zofran) 4 mg PRN Q6HRS PRN IV NAUESA, 1ST CHOICE; Start 07/17/18 at 13:15 Cefazolin Sodium 1 gm/Dextrose 50 ml @ 100 mls/hr Q8HRS IV ; Start 07/17/18 at 14:00; Stop 07/18/18 at 06:29; Status UNV Desflurane (Suprane) 90 ml STK-MED ONCE IH ; Start 07/17/18 at 13:31; Stop 07/17/18 at 13:32; Status DC Sodium Chloride (SODIUM CHLORIDE 20ml) 20 ml STK-MED ONCE IJ ; Start 07/17/18 at 13:49; Stop 07/17/18 at 13:50; Status DC Sodium Chloride (SODIUM CHLORIDE 20ml) 20 ml STK-MED ONCE IJ ; Start 07/17/18 at 13:49; Stop 07/17/18 at 13:50; Status DC Remifentanil HCl (Ultiva) 2 mg STK-MED ONCE IV ; Start 07/17/18 at 13:49; Stop 07/17/18 at 13:50; Status DC Cefazolin Sodium (Ancef) 1 gm STK-MED ONCE .ROUTE ; Start 07/17/18 at 14:56; Stop 07/17/18 at 14:57; Status DC Cefazolin Sodium (Ancef) 1 gm STK-MED ONCE .ROUTE ; Start 07/17/18 at 14:56; Stop 07/17/18 at 14:57; Status DC Neostigmine Methylsulfate (Neostigmine Methylsulfate) 5 mg STK-MED ONCE .ROUTE ; Start 07/17/18 at 15:38; Stop 07/17/18 at 15:39; Status DC Cefazolin Sodium (Ancef) 1 gm Q8H IVP Last administered on 07/18/18at 15:28; Start 07/17/18 at 23:00; Stop 07/18/18 at 15:01; Status DC Ephedrine Sulfate (ePHEDrine PF IN SALINE SYRINGE) 50 mg STK-MED ONCE IV ; Start 07/17/18 at 15:46; Stop 07/17/18 at 15:47; Status DC Fentanyl Citrate (Fentanyl 2ml Vial) 100 mcg STK-MED ONCE .ROUTE ; Start 07/17/18 at 16:46; Stop 07/17/18 at 16:47; Status DC Throat Lozenges (Cepacol Sore Throat Lozenge) 1 fili PRN Q2HRS PRN PO SORE THROAT Last administered on 07/18/18at 07:51; Start 07/18/18 at 07:30 Albuterol Sulfate (Ventolin Neb Soln) 2.5 mg PRN Q4HRS PRN NEB SHORTNESS OF BREATH Last administered on 07/18/18at 09:10; Start 07/18/18 at 07:30 Acetaminophen/ Hydrocodone Bitart (Lortab 7.5/325) 1 tab PRN Q4HRS PRN PO PAIN Last administered on 07/18/18at 10:55; Start 07/18/18 at 09:00; Stop 07/18/18 at 11:48; Status DC Oxycodone/ Acetaminophen (Percocet 5/325) 1 tab PRN Q4HRS PRN PO PAIN Last administered on 07/18/18at 15:27; Start 07/18/18 at 12:00 Oxycodone/ Acetaminophen (Percocet 5/325) 2 tab PRN Q4HRS PRN PO PAIN Last administered on 07/19/18at 09:48; Start 07/18/18 at 12:00 Bisacodyl (Dulcolax Tab) 10 mg DAILY PO Last administered on 07/19/18at 08:44; Start 07/19/18 at 09:00 Magnesium Hydroxide (Milk Of Magnesia) 2,400 mg PRN DAILY PRN PO CONSTIPATION; Start 07/18/18 at 16:15 Senna/Docusate Sodium (Senna Plus) 1 tab PRN BID PRN PO CONSTIPATION; Start 07/18/18 at 16:15 Active Scripts Active Reported Multivitamins (Multivitamin) 1 Each Tablet 1 Tab PO DAILY Ibuprofen 800 Mg Tablet 800 Mg PO PRN BID PRN Ropinirole Hcl 4 Mg Tablet 4 Mg PO QID Omeprazole 40 Mg Capsule.dr 1 Cap PO DAILY Diovan (Valsartan) 80 Mg Tablet 80 Mg PO DAILY Vitals/I & O Vital Sign - Last 24 Hours 07/18/18 07/18/18 07/18/18 07/18/18 10:55 10:55 11:00 12:57 Temp 97.4 97.4 Pulse 71 Resp 20 B/P (MAP) 127/49 (75) Pulse Ox 95 95 O2 Delivery Room Air Room Air Room Air Room Air 07/18/18 07/18/18 07/18/18 07/18/18 13:32 15:00 15:27 16:39 Temp 97.8 97.8 Pulse 70 Resp 18 B/P (MAP) 105/48 (67) Pulse Ox 96 95 O2 Delivery Room Air Room Air Room Air Room Air 07/18/18 07/18/18 07/18/18 07/18/18 19:00 20:00 20:51 22:36 Temp 99.3 98.3 99.3 98.3 Pulse 67 61 Resp 18 18 B/P (MAP) 108/52 (70) 104/47 (66) Pulse Ox 94 94 O2 Delivery Room Air Room Air Room Air Room Air 07/19/18 07/19/18 07/19/18 07/19/18 02:45 03:10 03:45 07:00 Temp 98.2 98.2 98.2 98.2 Pulse 63 66 Resp 18 18 B/P (MAP) 106/58 (74) 116/43 (67) Pulse Ox 98 97 O2 Delivery Room Air Room Air Room Air Room Air 07/19/18 07/19/18 09:00 09:48 Pulse 66 B/P (MAP) 116/43 O2 Delivery Room Air Intake and Output 07/18/18 07/18/18 07/19/18 15:00 23:00 07:00 Intake Total 560 ml 340 ml 300 ml Output Total 200 ml Balance 360 ml 340 ml 300 ml JUICE CABRERA MD July 19, 2018 10:31
[2018-07-19] MEDS: fentaNYL PF VIAL 100 MCG/2 ML VIAL IV PRN (10:58)
[2018-07-19 11:00] VITALS: BP 94/49
--- NOTE | 2018-07-19 11:39 | PDOC ---
PROGRESS NOTES Subjective Subjective She admits continued back pain and numbness of lateral aspect of both thighs and not passing gases yet. Objective Objective Vital Signs Date Time Temp Pulse Resp B/P (MAP) Pulse Ox O2 Delivery O2 Flow Rate FiO2 07/19/18 10:58 Room Air 07/19/18 09:00 66 116/43 07/19/18 07:00 98.2 18 97 98.2 07/18/18 03:00 2.0 Intake and Output 07/19/18 07:00 Intake Total 1200 ml Output Total 200 ml Balance 1000 ml Intake Oral 1200 ml Output Urine Total 200 ml # Voids 3 Physical Exam Physical Exam She is alert,sitting in bedside chair and had lumbar corset higher in her low back and she continues with decreased sensory perception ove lateral femoral cutaneous nerve distribution.She is walking with roller walker under supervision. Plan Plan of Care To continue physical and occupational therapy follow up and to SNF when medically stable. Comment Review of Relevant I have reviewed the following items melody (where applicable) has been applied. Medications Current Medications Ondansetron HCl (Zofran) 4 mg PRN Q6HRS PRN IV NAUSEA/VOMITING Last administered on 07/17/18at 08:51; Start 07/17/18 at 07:00; Stop 07/17/18 at 18:20; Status DC Fentanyl Citrate (Fentanyl 2ml Vial) 25 mcg PRN Q5MIN PRN IV MILD PAIN 1-3; Start 07/17/18 at 07:00; Stop 07/17/18 at 18:20; Status DC Fentanyl Citrate (Fentanyl 2ml Vial) 50 mcg PRN Q5MIN PRN IV MODERATE TO SEVERE PAIN Last administered on 07/17/18at 17:15; Start 07/17/18 at 07:00; Stop 07/17/18 at 18:20; Status DC Ringer's Solution 1,000 ml @ 30 mls/hr Q24H IV Last administered on 07/17/18at 08:42; Start 07/17/18 at 07:00; Stop 07/17/18 at 18:20; Status DC Lidocaine HCl (Xylocaine-Mpf 1% 2ml Vial) 2 ml PRN 1X PRN ID PRIOR TO IV START; Start 07/17/18 at 07:00; Stop 07/17/18 at 18:20; Status DC Prochlorperazine Edisylate (Compazine) 5 mg PACU PRN PRN IV NAUSEA, MRX1; Start 07/17/18 at 07:00; Stop 07/17/18 at 18:20; Status DC Bacitracin 99953 unit/Sodium Chloride 1,000 ml @ 1,000 mls/hr 1X ONCE IRR Last administered on 07/17/18 11:36; Start 07/17/18 at 06:00; Stop 07/17/18 at 06:59; Status DC Cefazolin Sodium/ Dextrose 50 ml @ 100 mls/hr 1X PREOP PRN IV PRIOR TO PROCEDURE; Start 07/17/18 at 06:00; Stop 07/17/18 at 18:00; Status DC Bupivacaine HCl/ Epinephrine Bitart (Sensorcain-Mpf Epi 0.5%-1:554614) 30 ml STK-MED ONCE .ROUTE Last administered on 07/17/18 11:36; Start 07/17/18 at 06:15; Stop 07/17/18 at 07:15; Status DC Gelatin (Gelfoam Size 12-7mm) 1 each STK-MED ONCE .ROUTE Last administered on 07/17/18 11:36; Start 07/17/18 at 06:15; Stop 07/17/18 at 07:15; Status DC Ketorolac Tromethamine (Toradol For Or Only) 60 mg STK-MED ONCE .ROUTE Last administered on 07/17/18 11:36; Start 07/17/18 at 06:15; Stop 07/17/18 at 07: 15; Status DC Thrombin 20,000 unit STK-MED ONCE TP Last administered on 07/17/18 11:36; Start 07/17/18 at 06:15; Stop 07/17/18 at 07:15; Status DC Propofol 20 ml @ As Directed STK-MED ONCE IV ; Start 07/17/18 at 09:24; Stop 07/17/18 at 09:25; Status DC Lidocaine HCl (Lidocaine Pf 2% Vial) 5 ml STK-MED ONCE .ROUTE ; Start 07/17/18 at 09:24; Stop 07/17/18 at 09:25; Status DC Dexamethasone Sodium Phosphate (Decadron) 20 mg STK-MED ONCE .ROUTE ; Start 07/17/18 at 09:24; Stop 07/17/18 at 09:25; Status DC Famotidine (Pepcid Vial) 20 mg STK-MED ONCE .ROUTE ; Start 07/17/18 at 09:24; Stop 07/17/18 at :; Status DC Ondansetron HCl (Zofran) 4 mg STK-MED ONCE .ROUTE ; Start 07/17/18 at 09:24; Stop 07/17/18 at 09:25; Status DC Fentanyl Citrate (Fentanyl 2ml Vial) 100 mcg STK-MED ONCE .ROUTE ; Start 07/17/18 at 09:25; Stop 07/17/18 at :26; Status DC Rocuronium [place] (Zemuron) 50 mg STK-MED ONCE .ROUTE ; Start 07/17/18 at 09:25; Stop 07/17/18 at :; Status DC Hydromorphone HCl (Dilaudid) 2 mg STK-MED ONCE .ROUTE ; Start 07/17/18 at 09:25; Stop 07/17/18 at 09:26; Status DC Remifentanil HCl (Ultiva) 2 mg STK-MED ONCE IV ; Start 07/17/18 at 09:25; Stop 07/17/18 at 09:26; Status DC Midazolam HCl (Versed) 2 mg STK-MED ONCE .ROUTE ; Start 07/17/18 at 09:25; Stop 07/17/18 at 09:26; Status DC Sodium Chloride (SODIUM CHLORIDE 20ml) 20 ml STK-MED ONCE IJ ; Start 07/17/18 at 09:29; Stop 07/17/18 at 09:30; Status DC Sodium Chloride (SODIUM CHLORIDE 20ml) 20 ml STK-MED ONCE IJ ; Start 07/17/18 at 09:29; Stop 07/17/18 at 09:30; Status DC Propofol 200 ml @ As Directed STK-MED ONCE IV ; Start 07/17/18 at 08:33; Stop 07/17/18 at 09:34; Status DC Glycopyrrolate (Robinul) 1 mg STK-MED ONCE .ROUTE ; Start 07/17/18 at 10:55; Stop 07/17/18 at 10:56; Status DC Ephedrine Sulfate (ePHEDrine PF IN SALINE SYRINGE) 50 mg STK-MED ONCE IV ; Start 07/17/18 at 11:02; Stop 07/17/18 at 11:03; Status DC Multivitamins (Thera M Plus) 1 tab DAILY PO Last administered on 07/19/18 08:43; Start 07/18/18 at 09:00 Pantoprazole Sodium (Protonix) 40 mg DAILYAC PO Last administered on 07/19/18 05:41; Start 07/18/18 at 07:30 Ropinirole HCl (Requip) 4 mg QID PO Last administered on 07/19/18at 09:49; Start 07/17/18 at 21:00 Losartan Potassium (Cozaar) 50 mg DAILY PO ; Start 07/18/18 at 09:00 Fentanyl Citrate (Fentanyl 2ml Vial) 50 mcg PRN Q2HR PRN IV PAIN SEVERE 2ND CHOICE Last administered on 07/19/18at 10:58; Start 07/17/18 at 13:15 Acetaminophen (Tylenol) 650 mg PRN Q6HRS PRN PO HEADACHE / TEMP; Start 07/17/18 at 13:15 Al Hydroxide/Mg Hydroxide (Mylanta Plus Xs) 30 ml PRN Q3HRS PRN PO HEARTBURN / GAS; Start 07/17/18 at 13:15 Calcium Carbonate/ Glycine (Tums) 500 mg PRN Q3HRS PRN PO INDIGESTION; Start 07/17/18 at 13:15 Diphenhydramine HCl (Benadryl) 25 mg PRN Q6HRS PRN PO ITCHING; Start 07/17/18 at 13:15 Naloxone HCl (Narcan) 0.1 mg PRN Q2MIN PRN IV ADMIN; Start 07/17/18 at 13:15 Sodium Chloride (Normal Saline Flush) 3 ml QSHIFT PRN IV AFTER MEDS AND BLOOD DRAWS; Start 07/17/18 at 13:15 Potassium Chloride/Dextrose/ Sod Cl 1,000 ml @ 75 mls/hr [id number] IV Last administered on 07/17/18at 21:17; Start 07/17/18 at 16:00; Stop 07/18/18 at 10:19; Status DC Methocarbamol (Robaxin) 750 mg TID PRN PO MUSCLE SPASMS Last administered on 07/18/18at 20:50; Start 07/17/18 at 13:15 Docusate Sodium (Colace) 100 mg BID PO Last administered on 07/19/18at 08:43; Start 07/17/18 at 21:00 Magnesium Hydroxide (Milk Of Magnesia) 2,400 mg PRN Q12HR PRN PO CONSTIPATION; Start 07/17/18 at 13:15 Ondansetron HCl (Zofran) 4 mg PRN Q6HRS PRN IV NAUESA, 1ST CHOICE; Start 07/17/18 at 13:15 Cefazolin Sodium 1 gm/Dextrose 50 ml @ 100 mls/hr Q8HRS IV ; Start 07/17/18 at 14:00; Stop 07/18/18 at 06:29; Status UNV Desflurane (Suprane) 90 ml STK-MED ONCE IH ; Start 07/17/18 at 13:31; Stop 07/17/18 at 13:32; Status DC Sodium Chloride (SODIUM CHLORIDE 20ml) 20 ml STK-MED ONCE IJ ; Start 07/17/18 at 13:49; Stop 07/17/18 at 13:50; Status DC Sodium Chloride (SODIUM CHLORIDE 20ml) 20 ml STK-MED ONCE IJ ; Start 07/17/18 at 13:49; Stop 07/17/18 at 13:50; Status DC Remifentanil HCl (Ultiva) 2 mg STK-MED ONCE IV ; Start 07/17/18 at 13:49; Stop 07/17/18 at 13:50; Status DC Cefazolin Sodium (Ancef) 1 gm STK-MED ONCE .ROUTE ; Start 07/17/18 at 14:56; Stop 07/17/18 at 14:57; Status DC Cefazolin Sodium (Ancef) 1 gm STK-MED ONCE .ROUTE ; Start 07/17/18 at 14:56; Stop 07/17/18 at 14:57; Status DC Neostigmine Methylsulfate (Neostigmine Methylsulfate) 5 mg STK-MED ONCE .ROUTE ; Start 07/17/18 at 15:38; Stop 07/17/18 at 15:39; Status DC Cefazolin Sodium (Ancef) 1 gm Q8H IVP Last administered on 07/18/18at 15:28; Start 07/17/18 at 23:00; Stop 07/18/18 at 15:01; Status DC Ephedrine Sulfate (ePHEDrine PF IN SALINE SYRINGE) 50 mg STK-MED ONCE IV ; Start 07/17/18 at 15:46; Stop 07/17/18 at 15:47; Status DC Fentanyl Citrate (Fentanyl 2ml Vial) 100 mcg STK-MED ONCE .ROUTE ; Start 07/17/18 at 16:46; Stop 07/17/18 at 16:47; Status DC Throat Lozenges (Cepacol Sore Throat Lozenge) 1 fili PRN Q2HRS PRN PO SORE THROAT Last administered on 07/18/18at 07:51; Start 07/18/18 at 07:30 Albuterol Sulfate (Ventolin Neb Soln) 2.5 mg PRN Q4HRS PRN NEB SHORTNESS OF BREATH Last administered on 07/18/18at 09:10; Start 07/18/18 at 07:30 Acetaminophen/ Hydrocodone Bitart (Lortab 7.5/325) 1 tab PRN Q4HRS PRN PO PAIN Last administered on 07/18/18at 10:55; Start 07/18/18 at 09:00; Stop 07/18/18 at 11:48; Status DC Oxycodone/ Acetaminophen (Percocet 5/325) 1 tab PRN Q4HRS PRN PO PAIN Last administered on 07/18/18at 15:27; Start 07/18/18 at 12:00 Oxycodone/ Acetaminophen (Percocet 5/325) 2 tab PRN Q4HRS PRN PO PAIN Last ad ministered on 07/19/18at 09:48; Start 07/18/18 at 12:00 Bisacodyl (Dulcolax Tab) 10 mg DAILY PO Last administered on 07/19/18at 08:44; Start 07/19/18 at 09:00 Magnesium Hydroxide (Milk Of Magnesia) 2,400 mg PRN DAILY PRN PO CONSTIPATION; Start 07/18/18 at 16:15 Senna/Docusate Sodium (Senna Plus) 1 tab PRN BID PRN PO CONSTIPATION; Start 07/18/18 at 16:15 Active Scripts Active Reported Multivitamins (Multivitamin) 1 Each Tablet 1 Tab PO DAILY Ibuprofen 800 Mg Tablet 800 Mg PO PRN BID PRN Ropinirole Hcl 4 Mg Tablet 4 Mg PO QID Omeprazole 40 Mg Capsule.dr 1 Cap PO DAILY Diovan (Valsartan) 80 Mg Tablet 80 Mg PO DAILY Vitals/I & O Vital Sign - Last 24 Hours 07/18/18 07/18/18 07/18/18 07/18/18 12:57 13:32 15:00 15:27 Temp 97.8 97.8 Pulse 70 Resp 18 B/P (MAP) 105/48 (67) Pulse Ox 95 96 95 O2 Delivery Room Air Room Air Room Air Room Air 07/18/18 07/18/18 07/18/18 07/18/18 16:39 19:00 20:00 20:51 Temp 99.3 99.3 Pulse 67 Resp 18 B/P (MAP) 108/52 (70) Pulse Ox 94 O2 Delivery Room Air Room Air Room Air Room Air 07/18/18 07/19/18 07/19/18 07/19/18 22:36 02:45 03:10 07:00 Temp 98.3 98.2 98.2 98.3 98.2 98.2 Pulse 61 63 66 Resp 18 18 18 B/P (MAP) 104/47 (66) 106/58 (74) 116/43 (67) Pulse Ox 94 98 97 O2 Delivery Room Air Room Air Room Air Room Air 07/19/18 07/19/18 07/19/18 07/19/18 09:00 09:48 10:48 10:58 Pulse 66 B/P (MAP) 116/43 O2 Delivery Room Air Room Air Room Air Intake and Output 07/18/18 07/18/18 07/19/18 15:00 23:00 07:00 Intake Total 560 ml 340 ml 300 ml Output Total 200 ml Balance 360 ml 340 ml 300 ml AMY DECKER MD July 19, 2018 11:39
[2018-07-19 15:00] VITALS: BP 108/43
[2018-07-19 19:00] VITALS: BP 107/44
[2018-07-19] MEDS: METHOCARBAMOL 750 MG TABLET PO PRN (20:25)
[2018-07-19 23:00] VITALS: BP 99/36
[2018-07-20 03:00] VITALS: BP 116/48
[2018-07-20] MEDS: oxyCODONE/APAP 5/325 1 TAB TABLET PO PRN ×3 (04:14→12:29)
[2018-07-20] MEDS: PANTOPRAZOLE 40 MG TABLET.DR. PO SCH (06:06)
[2018-07-20 07:00] VITALS: BP 116/66
[2018-07-20] MEDS: rOPINIRole 1 MG TABLET. PO SCH ×2 (08:18→12:29)
[2018-07-20] MEDS: BISACODYL 5 MG TABLET.DR. PO SCH (08:18)
[2018-07-20] MEDS: METHOCARBAMOL 750 MG TABLET PO PRN (08:18)
[2018-07-20] MEDS: DOCUSATE SODIUM 100 MG CAPSULE. PO SCH (08:18)
[2018-07-20] MEDS: LOSARTAN POTASSIUM 50 MG TABLET. PO SCH (08:19)
[2018-07-20] MEDS: MULTIVITAMIN with MINERAL TABLET. PO SCH (08:20)
[2018-07-20] MEDS ORDERED: DOCU-109 PO (10:51)
[2018-07-20] MEDS ORDERED: OXYC1TAB15 PO (10:51)
--- NOTE | 2018-07-20 10:52 | DISCH ---
DISCHARGE INSTRUCTIONS Condition on Discharge Condition on Discharge: Stable Activity After Discharge Activity Instructions for Disc: Activity as tolerated, Avoid exertion Bathing Instructions: Shower-keep dressing dry Lifting Instructions after Dis: No heavy lifting, No pulling or pushing, Do not lift >10 pounds Driving Instructions after Dis: No driving for 2 weeks Diet after Discharge Additional Diet Restrictions: resume home diet Wound Incision Care Wound/Incision Care: Ice to area for comfort Other wound/incision instructi: may remove dressing in 48 hours if dry then may shower, no soaking Contacting the after DC Call your doctor for: Concerns you may have Follow-Up Follow up with: Dr. Cabrera's nurse in 2 weeks [phone] JIUCE CABRERA MD July 20, 2018 10:52
[2018-07-20 11:00] VITALS: BP 102/50
[2018-07-20 15:00] VITALS: BP 111/79
--- NOTE | 2018-07-20 15:50 | NUR ---
Pt discharged home with self care. Discharge instructions and prescriptions discussed with daughter and pt. Verbalized understanding. IV removed without complications. Pt taken via wheelchair to main entrance and was secured in vehicle with son in law.
--- NOTE | 2018-07-22 17:06 | PATHOLOGY ---
[facility] Accession Number: [id number] . 01 Material submitted: . vertebral column - LUMBAR DECOMPRESSION . 01 Clinical history: . None provided . 02 Diagnosis: Segments of fibrocartilaginous, adipose, and skeletal muscle tissue and bone, lumbar decompression: - Degenerative changes of fibrocartilaginous tissue. (JPM:ryanne; 07/22/2018) QMS/07/22/2018 . 02 Comment: There is no evidence of an acute inflammatory process or malignancy. . 02 Electronically signed: . Randall Kendall MD, Pathologist NPI- [id number] . 01 Gross description: . The specimen is received in formalin, labeled "Risalvato, Christa, lumbar decompression", are multiple irregular fragments of corbin-white rubbery and gritty tissue and pale yellow fatty tissue possibly admixed with segment sof gritty bone measuring 5.0 x 4.7 x 1.2 cm in aggregate. Hop Worker tissue is submitted in A1. After decalcification. (SWS; 07/18/2018) SHS/SHS . 02 Pathologist provided ICD-10: M99.73, M47.896 . 02 CPT . 842630, 619705 Specimen Comment: A courtesy copy of this report has been sent to Specimen Comment: [phone], . Specimen Comment: Report sent to DR CABRERA / DR SCANLON Performed at: 01 [facility] [address], [place] [id number] MD Per Tolentino MD Phone: [phone] Performed at: 02 [facility] [address] [place], [place] [id number] MD Randall Kendall MD Phone: [phone]
== END 2018-07-20 15:45 | disposition home or self-care (01) | DRG 460 ==
LOC: OPSVCIP 08:00 → 4 NORTH 15:31
PROVIDERS: ADMIT Neurological Surgery; ATTEND Neurological Surgery
PROC: 0SG1071 Fusion of 2 or more Lumbar Vertebral Joints with Autologous Tissue Substitute, Posterior Approach, Posterior Column, Open Approach (ICD-10-PCS; 2018-07-17)
PROC: 4A11X4G Monitoring of Peripheral Nervous Electrical Activity, Intraoperative, External Approach (ICD-10-PCS; 2018-07-17)
PROC: 00NY0ZZ Release Lumbar Spinal Cord, Open Approach (ICD-10-PCS; 2018-07-17)
PROC: 01NB0ZZ Release Lumbar Nerve, Open Approach (ICD-10-PCS; principal; 2018-07-17 10:30)
DX: M48.062 Spinal stenosis, lumbar region with neurogenic claudication (principal); M71.38 Other bursal cyst, other site; M43.16 Spondylolisthesis, lumbar region; E66.9 Obesity, unspecified; I10 Essential (primary) hypertension; G89.29 Other chronic pain; M10.9 Gout, unspecified; M19.90 Unspecified osteoarthritis, unspecified site; F17.210 Nicotine dependence, cigarettes, uncomplicated; Z96.653 Presence of artificial knee joint, bilateral; Z82.49 Family history of ischemic heart disease and other diseases of the circulatory system; Z98.1 Arthrodesis status; Z90.710 Acquired absence of both cervix and uterus; Z88.8 Allergy status to other drugs, medicaments and biological substances; Z91.040 Latex allergy status; Z68.30 Body mass index [BMI] 30.0-30.9, adult; Z79.899 Other long term (current) drug therapy
CPT/HCPCS: 36415; 72131; 76000; 80053; 85025; 85610; 85730; 86850; 86900; 86901; 87641; 88304; 88311; 93005; 94640; 94760; 99406; A4314; A7015; C1713; J0171; J0690; J1100; J1170; J1885; J2001; J2250; J2405; J2704; J2710; J3010; J3490; J7030; J7120; J7613; 97110; 97116; 97530

== ENCOUNTER → 2018-10-02 | Outpatient (CLI) | payer MEDICARE, OTHER ==
[~2018-10-02] MED LIST changes: -BACITRACIN 50,000 UNIT in IV NORMAL SALINE 1000ML BAG 1,000 ML IRR ONE; -BUPIVAC MPF-EPI 0.5%-1:200000 30 ML VIAL. ONE; +DOCU-109 PO; -GELATIN SPONGE SIZE 12-7MM SPONGE. ONE; -IV RINGERS,LACTATED 1000ML 1,000 ML IV SCH; -KETOROLAC 60 MG/2 ML INJ FOR OR. ONE; -LIDOCAINE 1% PF 2 ML VIAL. ID PRN; -ONDANSETRON PF 4 MG/2 ML VIAL. IV PRN; +OXYC1TAB15 PO; -PROCHLORPERAZINE 10 MG/2 ML VIAL. IV PRN; -THROMBIN TOPICAL 20,000 UNIT SPRAY.SYRN KIT TP ONE; -fentaNYL PF VIAL 100 MCG/2 ML VIAL IV PRN
--- NOTE | 2018-10-02 12:46 | KCIC ---
EXAM: Lumbar spine, 2 views. HISTORY: Fusion. Pain. COMPARISON: 07/17/2018 FINDINGS: 2 views of the lumbar spine are obtained. There is instrumented posterior spinal fusion at L3-L5. The instrumentation consists of paired transpedicular screws bridged by vertical rods. There are Nyasia to be changes at the fused levels. There is levoscoliosis centered at L3. There is degenerative endplate remodeling with disc space narrowing and osteophytosis primarily along the right aspects of L1-L2 and L2-L3 and at the lumbosacral junction. There is minimal grade 1 anterolisthesis of L4 on L5. There is mild retrolisthesis of L2 on L3. IMPRESSION: 1. Instrumented fusion at L3-L5. There is no convincing is rotation loosening or fracture. 2. Lumbar scoliosis, minimal grade 1 anterolisthesis of L4 and L5 and mild retrolisthesis of L2 on L3. 3. Multilevel degenerative change, primarily at L1-L2 and L5-S1. Electronically signed by: Sirisha Sandoval MD (10/02/2018 12:44 PM) [id number]
== END | disposition home or self-care (01) ==
LOC: KCIC 12:21
PROVIDERS: ATTEND Neurological Surgery
DX: M47.817 Spondylosis without myelopathy or radiculopathy, lumbosacral region (principal); M48.061 Spinal stenosis, lumbar region without neurogenic claudication; M41.86 Other forms of scoliosis, lumbar region; M53.86 Other specified dorsopathies, lumbar region; Z98.1 Arthrodesis status
CPT/HCPCS: 72100

== ENCOUNTER → 2019-02-04 | Outpatient (CLI) | payer MEDICARE, OTHER ==
[~2019-02-04] MED LIST changes: +ASPI-630 PO; +GADOTERATE 7.5 MMOL/15ML VIAL. IVP ONE; +HYDR-2761 PO; +OMEP40CA45 PO; -OMEP40CA5 PO
--- NOTE | 2019-02-05 10:06 | KCIC ---
LUMBAR SPINE WO/W CONTRAST History: Lumbar radiculopathy. Failed lumbar fusion. Technique: Multiplanar, multi sequential MR imaging was performed of the lumbar spine with and without contrast. Comparison: CT July 17, 2018 Findings: Postoperative changes L3-L5 posterior stabilization and decompression. Posterior paraspinal muscle edema, nonspecific and likely postoperative or related to denervation edema. Postoperative fluid collection at the L4-L5 level within the operative bed. This tear epidural enhancement at the operative levels. Mild leftward curvature of the lumbar spine. Minimal anterolisthesis L4 on L5 and retrolisthesis L2 on L3. Normal vertebral body height. No fracture. Degenerative endplate edema most prominent L1-L2. Conus terminates at the normal location. No evidence of nerve root clumping. Sacral Tarlov cysts. L1-L2: Small posterior disc bulge. Moderate facet arthropathy. Mild right neuroforaminal narrowing. No left neuroforaminal narrowing. No canal narrowing. L2-L3: Small posterior disc bulge. Advanced facet arthropathy. Mild subarticular recess. No canal narrowing. Mild bilateral neural foraminal narrowing. L3-L4: Small posterior disc bulge. Posterior decompression. No canal narrowing. Facet arthropathy. No neuroforaminal narrowing. L4-L5: Small posterior disc bulge. Posterior decompression. No canal narrowing. Facet arthropathy. Mild left neuroforaminal narrowing. No right neuroforaminal narrowing. L5-S1: Posterior disc bulge. Moderate facet arthropathy. No canal narrowing. Mild bilateral neural foraminal narrowing although evaluation is degraded due to adjacent hardware. Small right renal cyst poorly characterize. Impression: 1. Postoperative changes L3-L5 with posterior epidural enhancement, posterior paraspinal muscle edema and postoperative fluid collection. 2. Multilevel lumbar spondylosis most prominent L1-L2 and L2-L3. Electronically signed by: Kumar Torres DO (02/05/2019 10:03 AM) [facility]
== END | disposition home or self-care (01) ==
LOC: KCIC MRI 14:18
PROVIDERS: ATTEND Neurological Surgery
DX: M54.16 Radiculopathy, lumbar region (principal); M47.26 Other spondylosis with radiculopathy, lumbar region
CPT/HCPCS: 72158; 82565; A9575

== ENCOUNTER 2019-02-06 05:55 | Inpatient (IN) | payer MEDICARE, OTHER ==
--- NOTE | 2019-02-05 21:47 | HP ---
ADMIT DATE: 02/06/2019 HISTORY OF PRESENT ILLNESS: The patient is a pleasant 73-year-old who underwent lumbar decompression including laminectomy, L3-L4, L4-L5 with removal of synovial cyst, posterior instrumentation with fusion L3 through L5 in June of 2018. She did well for a short time, but then had a fall and developed increasing back and right hip pain. She was evaluated by Orthopedics and received an injection in her right hip, which did not help her. Currently, her pain is in her lower back on the right side. It radiates to the right hip. It has been slowly worsening. She rates her pain as 6/10 currently. The problem worsens with activity. She is taking [place]. She has been limiting her activities. CURRENT MEDICATIONS: Diovan, hydrochlorothiazide ropinirole, omeprazole, multivitamin, aspirin, [place]. PAST MEDICAL HISTORY: Arthritis, gout, hypertension, artificial knee. PAST SURGICAL HISTORY: Bilateral knee replacements, cataract surgery, hysterectomy, cervical fusion, lateral ____ lumbar laminectomy L3-L4, L4-L5, removal of synovial cyst, posterior instrumentation/fusion L3 through L5 in June of 2018. ALLERGIES: LATEX, CODEINE, FENTANYL. FAMILY HISTORY: Cancer, hypertension. SOCIAL HISTORY: Works in the home. . Drinks alcohol 1-2 times per month. REVIEW OF SYSTEMS: A 12-point review of systems was performed and is noncontributory. PHYSICAL EXAMINATION: GENERAL: Alert, pleasant. HEAD: Normocephalic, atraumatic. SKIN: Warm and dry, well-healed lumbar incision. MUSCULOSKELETAL: Lumbar paraspinal muscle bulk is normal, restricted range of motion of the lumbar spine, cyvr-rd-ocflopzo tenderness of the lower lumbar spine with palpation especially on the right side, normal range of motion of the lower extremities bilaterally. EXTREMITIES: No clubbing, cyanosis or edema. NEUROLOGIC: Alert and oriented x 3. Strength is 5/5 in the lower extremities. Sensory was intact to light touch in the lower extremities. Negative straight leg raising, normal gait. IMAGING: I reviewed a lumbar CT scan and I do not see evidence of a solid fusion. There is some suggestion of loosening of the lower pedicle screws. I also reviewed a lumbar MRI scan and there is narrowing at L2-L3 on the right. 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 I spoke with her about options. We will make arrangements for revision of her fusion and decompression at L2-L3. We spoke about the rationale, technique, the risk and expected postoperative course. She would strongly like to proceed. We are making the arrangements. JUICE CABRERA MD DR: DONNELL/sharifa JOB#: [id number] / [id number]
[~2019-02-06] VITALS: Ht 167.6 cm; Wt 84.8 kg
[~2019-02-06 05:55] MED LIST changes: -GADOTERATE 7.5 MMOL/15ML VIAL. IVP ONE
[2019-02-06] MEDS ORDERED: BACITRACIN 50,000 UNIT in IV NORMAL SALINE 1000ML BAG 1,000 ML IRR ONE (06:00)
[2019-02-06] MEDS ORDERED: KETOROLAC 60 MG/2 ML VIAL. ONE (06:44)
[2019-02-06] MEDS ORDERED: THROMBIN TOPICAL 20,000 UNIT SPRAY.SYRN KIT TP ONE (06:44)
[2019-02-06] MEDS ORDERED: GELATIN SPONGE SIZE 100. ONE (06:44)
[2019-02-06] MEDS ORDERED: ONDANSETRON PF 4 MG/2 ML VIAL. IV PRN (07:00)
[2019-02-06] MEDS ORDERED: HYDROmorphone 2 MG/ML VIAL IV PRN (07:00)
[2019-02-06] MEDS ORDERED: fentaNYL PF VIAL 100 MCG/2 ML VIAL IV PRN ×2 (07:00)
[2019-02-06] MEDS ORDERED: LIDOCAINE 1% PF 2 ML VIAL. ID PRN (07:00)
[2019-02-06] MEDS ORDERED: PROCHLORPERAZINE 10 MG/2 ML VIAL. IV PRN (07:00)
[2019-02-06] MEDS ORDERED: IV RINGERS,LACTATED 1000ML 1,000 ML IV SCH (07:00)
[2019-02-06] MEDS ORDERED: BUPIVACAINE-EPI 0.5%-1:200000 MPF 30 ML VIAL. INJ ONE (08:00)
[2019-02-06] MEDS ORDERED: LIDOCAINE 2% PF 5 ML VIAL. ONE (08:05)
[2019-02-06] MEDS ORDERED: PROPOFOL 20 ML IV ONE (08:05)
[2019-02-06] MEDS ORDERED: PHENYLEPHRINE 10 MG/ML VIAL. ONE (08:05)
[2019-02-06] MEDS ORDERED: ROCURONIUM 50 MG/5 ML VIAL. ONE (08:05)
[2019-02-06] MEDS ORDERED: DEXAMETHASONE SOD PHOS 20 MG/5 ML VIAL. ONE (08:05)
[2019-02-06] MEDS ORDERED: REMIFENTANIL 2 MG VIAL. IV ONE (08:09)
[2019-02-06] MEDS ORDERED: PROPOFOL 100 ML IV ONE (08:12)
[2019-02-06] MEDS ORDERED: MIDAZOLAM HCL/PF 2 MG/2 ML VIAL. ONE (08:38)
[2019-02-06] MEDS ORDERED: KETAMINE HCL IN NACL, ISO-OSM 50 MG/5 ML SYRINGE ONE (09:11)
[2019-02-06] MEDS ORDERED: GLYCOPYRROLATE 1 MG/5 ML VIAL. ONE (09:17)
[2019-02-06] MEDS ORDERED: ePHEDrine PF IN SALINE 50 MG/10 ML SYRINGE. IV ONE (09:20)
[2019-02-06] MEDS ORDERED: DESFLURANE > 120 MINUTES IH ONE (11:25)
[2019-02-06] MEDS ORDERED: PROPOFOL 50 ML IV ONE (12:35)
[2019-02-06] MEDS ORDERED: ceFAZolin SODIUM 1 GM VIAL ONE (13:07)
[2019-02-06] MEDS ORDERED: NEOSTIGMINE METHYLSULFATE 5 MG/5 ML SYRINGE. ONE (13:08)
[2019-02-06] MEDS ORDERED: 0.9 % SODIUM CHLORIDE 20 ML VIAL. IJ ONE (13:08)
[2019-02-06] MEDS: IV NORMAL SALINE 1000ML BAG 1,000 ML IV SCH (14:07)
[2019-02-06] MEDS ORDERED: MORPHINE SULFATE 2 MG/ML VIAL. IV PRN ×2 (14:15)
[2019-02-06] MEDS ORDERED: 0.9 % SODIUM CHLORIDE 10 ML DISP.SYRIN. IV PRN (14:15)
[2019-02-06] MEDS ORDERED: diphenhydrAMINE HCL 25 MG CAPSULE PO PRN (14:15)
[2019-02-06] MEDS ORDERED: ACETAMINOPHEN 325 MG TABLET. PO PRN (14:15)
[2019-02-06] MEDS ORDERED: MAG HYDROX/ALUMINUM HYD/SIMETH 30 ML ORAL.SUSP PO PRN (14:15)
[2019-02-06] MEDS ORDERED: CALCIUM CARBONATE 500 MG TAB.CHEW PO PRN (14:15)
[2019-02-06] MEDS ORDERED: METHOCARBAMOL 750 MG TABLET PO PRN (14:15)
[2019-02-06] MEDS ORDERED: ONDANSETRON PF 4 MG/2 ML VIAL. IVP PRN (14:15)
[2019-02-06] MEDS ORDERED: NALOXONE 0.4 MG/ML VIAL. IV PRN ×2 (14:15)
[2019-02-06] MEDS: MORPHINE SULFATE 2 MG/ML VIAL. IV PRN ×4 (14:51→15:33)
[2019-02-06] MEDS: HYDROcodone/APAP 7.5/325MG 1 TAB TABLET PO PRN ×2 (15:09→21:00)
--- NOTE | 2019-02-06 15:46 | OP ---
DATE OF SURGERY: 02/06/2019 PREOPERATIVE DIAGNOSES: 1. Lateral recess stenosis L2-L3, right with right lumbar radiculopathy. 2. 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 POSTOPERATIVE DIAGNOSES: 1. Lateral recess stenosis L2-L3, right with right lumbar radiculopathy. 2. 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 OPERATION PERFORMED: 1. Hemilaminotomy with microdecompression of dura and nerve root, right L2-L3. 2. Removal of hardware L3 through L5. Re-tapping and placing large hardware required L3 through L5 bilaterally. 3. Posterolateral fusion, L3, L4, L5 with allograft bone. The operation was done with EMG monitoring, fluoroscopy, microscopic dissection and BrainLAB guidance. SURGEON: Richard Cabrera M.D. IT SOFTWARE ENGINEER: Anyi Levine APRN OPERATIVE INDICATIONS: The patient is a very pleasant 73-year-old who developed intractable back pain and pain in her lower extremities. She underwent several months ago, lumbar microsurgery for a large laminectomy L3, L4, L5 to decompress central canal stenosis with plus posterolateral fusion and posterior instrumentation L3, L4, L5. The surgery went very well. The patient initially started to do well, but then she had a fall and then developed significant pain in her lower back and right hip and that pain has continued unabated to the present time despite conservative measures. On imaging studies, she was found to have evidence of loosening of hardware. With further questioning, she is a smoker and she was strongly encouraged to quit. Because of severity of pain I recommended reoperation with removal and replacement of hardware plus augmentation of her previous fusion and in addition, because of the right hip pain I felt that the micro decompression on the right at L2-L3 may be of some benefit. She understood the surgery and risks, she wished to go ahead. DESCRIPTION OF PROCEDURE: Following general endotracheal anesthesia, the patient was positioned prone on the Salazar table. Lumbar region prepped and draped in standard fashion. ALLEY hose and AV impulse boots were applied for DVT prophylaxis. The microscope was draped. Fluoroscopy was draped and brought into the field. Monitoring was established. I dissected down through the lumbodorsal fascia laterally and made incisions and the fascia propping down to the hardware of L3, L4 and L5 bilaterally. I placed self-retaining retractors. I removed the screws and rods and then I worked diligently first on the left side and then the right side to remove scar and exposed the previous fusion, working posterolaterally. Enlargement exposure of the bone has been enlarging reabsorbed I re-excoriated the transverse processes lateral facets. I also excoriated bone within the facets, I then packed allograft bone, which was tapped into position in the facet region and that filled the lateral gutters with bone. Screws were placed. I used Republic system and screws were taken up to a larger size and after tapping and then replaced. Rods were replaced. Posterolateral bone in position. During this time, I went up to L2-L3 on the right and performed a hemilaminotomy with a high speed air drill, again using BrainLAB guidance, I then peeled away thickened ligamentum flavum, exposing the dura and the exiting L3 root and there was lateral stenosis, which was relieved. I completed placing bone in the lateral gutters. Screws and rods were all in position. I did distract on the left at L3, L4 and torqued the system sequentially. Films looked good. I irrigated copiously with antibiotic solution. I closed the wound in layers with absorbable suture. The skin was closed with skin brisa. The operation went very well. RICHARD CABRERA MD DR: ELIDIA/sharifa JOB#: [id number] / [id number] LEEROY
[2019-02-06] MEDS: POTASSIUM CL 20MEQ D5-0.45NACL 1,000 ML IV SCH (15:49)
--- NOTE | 2019-02-06 17:06 | NUR ---
The patient, LIN CONSTANTINO, 73 y/o, F admitted by JUICE CABRERA MD, was given written information regarding hospital policies, unit procedures and contact persons. Valuables were checked and left with patient in her room .
[2019-02-06 19:20] VITALS: BP 119/63
[2019-02-06] MEDS: DOCUSATE SODIUM 100 MG CAPSULE. PO SCH (21:00)
[2019-02-06] MEDS: rOPINIRole 1 MG TABLET. PO SCH (21:00)
[2019-02-06] MEDS: ceFAZolin SODIUM IV Push 1 GM VIAL. IVP SCH (22:09)
[2019-02-06 23:23] VITALS: BP 105/48
[2019-02-07 03:14] VITALS: BP 103/54
[2019-02-07] MEDS: HYDROcodone/APAP 7.5/325MG 1 TAB TABLET PO PRN ×3 (03:35→17:45)
[2019-02-07] MEDS: POTASSIUM CL 20MEQ D5-0.45NACL 1,000 ML IV SCH ×2 (05:17→16:33)
[2019-02-07] MEDS: ceFAZolin SODIUM IV Push 1 GM VIAL. IVP SCH ×2 (05:47→13:51)
[2019-02-07 07:00] VITALS: BP 113/57
[2019-02-07] MEDS: LOSARTAN POTASSIUM 50 MG TABLET. PO SCH (08:24)
[2019-02-07] MEDS: DOCUSATE SODIUM 100 MG CAPSULE. PO SCH ×2 (08:25→21:11)
[2019-02-07] MEDS: ASPIRIN CHEWABLE 81 MG TABLET. PO SCH (08:25)
[2019-02-07] MEDS: MULTIVITAMIN with MINERAL TABLET. PO SCH (08:25)
[2019-02-07] MEDS: PANTOPRAZOLE 40 MG TABLET.DR. PO SCH (08:25)
[2019-02-07] MEDS: rOPINIRole 1 MG TABLET. PO SCH ×4 (08:26→21:10)
--- NOTE | 2019-02-07 09:26 | RAD ---
CT lumbar spine without contrast HISTORY: Lower back pain, lumbar radiculopathy CT lumbar spine Axial CT images were obtained to the lumbar spine. Sagittal and coronal reconstructed images were reviewed. Comparison is made with a previous lumbar spine from June and from a recent and with a recent MRI. Patient's had a lumbar spine fusion from L3 to L5 in the interval since the prior CT. Pedicle screws at L3, L4 and L5 appear in good position. Patient's had a laminectomy at L4. There are artifacts off the pedicle screws and rods. There is degeneration of the disc at T12-L1 without a focal disc protrusion or spinal stenosis. There is disc degeneration at L1-2 with hypertrophic spurring. There is mild foraminal stenosis on the right and mild lateral recess narrowing from ligamentous and facet hypertrophy and bulging of the disc at L1-2. There is diffuse bulging of the disks with ligamentous and facet hypertrophy at L2-3. There is foraminal narrowing mildly on the right. There is lateral recess stenosis and mild spinal stenosis at L2-3. There is no spinal stenosis at L3-4 or L4-5. There is mild foraminal stenosis on the left at L4-5 with bulging of the disc. There is mild spurring at L3-4 without spinal stenosis. Posterior soft tissue swelling better seen on the MRI study. There is mild bulging of the disc mainly at the right at L5-S1 without spinal stenosis. IMPRESSION: 1. Degenerative changes at multiple levels. 2. lateral recess stenosis and spinal stenosis most prominent at L2-3. 3. Some limitations due to the artifacts. PQRS Compliance Statement: One or more of the following individualized dose reduction techniques were utilized for this examination: 1. Automated exposure control 2. Adjustment of the mA and/or kV according to patient size 3. Use of iterative reconstruction technique Electronically signed by: Michele Kennedy MD (02/07/2019 9:23 AM) [facility]
[2019-02-07 11:00] VITALS: BP 112/55
[2019-02-07] MEDS: IV NORMAL SALINE 1000ML BAG 1,000 ML IV SCH (13:59)
[2019-02-07 15:00] VITALS: BP 120/53
--- NOTE | 2019-02-07 15:30 | PDOC ---
PROGRESS NOTES Subjective Subjective POD #1 awake,alert hip and radicular pain much better reports incisional pain, controlled with medication has ambulated in room and burton with assist Objective Objective Vital Signs Date Time Temp Pulse Resp B/P (MAP) Pulse Ox O2 Delivery O2 Flow Rate FiO2 02/07/19 11:11 Room Air 02/07/19 11:00 97.6 66 16 112/55 (74) 98 97.6 02/06/19 14:51 8.0 Intake and Output 02/07/19 07:00 Intake Total 2360 ml Output Total 850 ml Balance 1510 ml Intake Oral 360 ml IV Total 2000 ml Output Urine Total 800 ml Estimated Blood Loss 50 ml # Voids 6 Physical Exam General: Alert, Oriented X3, Cooperative MUSCULOSKELETAL: Other (HERRERA) Neuro: Normal speech, Other (dressign C,D,I, flat) Plan Plan of Care PT encouraged increased activity as tolerated likely need SNF Comment Review of Relevant I have reviewed the following items melody (where applicable) has been applied. Medications Current Medications Ondansetron HCl (Zofran) 4 mg PRN Q6HRS PRN IV NAUSEA/VOMITING; Start 02/06/19 at 07:00; Stop 02/07/19 at 06:59; Status DC Fentanyl Citrate (Fentanyl 2ml Vial) 25 mcg PRN Q5MIN PRN IV MILD PAIN 1-3; Start 02/06/19 at 07:00; Stop 02/05/19 at 15:25; Status DC Fentanyl Citrate (Fentanyl 2ml Vial) 50 mcg PRN Q5MIN PRN IV MODERATE TO SEVERE PAIN; Start 02/06/19 at 07:00; Stop 02/05/19 at 15:25; Status DC Morphine Sulfate (Morphine Sulfate) 1 mg PRN Q10MIN PRN IV SEVERE PAIN 7-10 Last administered on 02/06/19at 15:33; Start 02/06/19 at 07:00; Stop 02/07/19 at 06:59; Status DC Ringer's Solution 1,000 ml @ 30 mls/hr Q24H IV Last administered on 02/06/19at 06:41; Start 02/06/19 at 07:00; Stop 02/06/19 at 18:59; Status DC Lidocaine HCl (Xylocaine-Mpf 1% 2ml Vial) 2 ml PRN 1X PRN ID PRIOR TO IV START; Start 02/06/19 at 07:00; Stop 02/07/19 at 06:59; Status DC Hydromorphone HCl (Dilaudid) 0.5 mg PRN Q10MIN PRN IV SEV PAIN, Second choice; Start 02/06/19 at 07:00; Stop 02/07/19 at 06:59; Status DC Prochlorperazine Edisylate (Compazine) 5 mg PACU PRN PRN IV NAUSEA, MRX1; Start 02/06/19 at 07:00; Stop 02/07/19 at 06:59; Status DC Bacitracin 54947 unit/Sodium Chloride 1,000 ml @ 1,000 mls/hr 1X ONCE IRR Last administered on 02/06/19at 10:04; Start 02/06/19 at 06:00; Stop 02/06/19 at 06:59; Status DC Bupivacaine HCl/ Epinephrine Bitart (Sensorcain-Epi 0.5%-1:781672 Mpf) 30 ml 1X ONCE INJ Last administered on 02/06/19at 10:04; Start 02/06/19 at 08:00; Stop 02/06/19 at 08:01; Status DC Cefazolin Sodium/ Dextrose 50 ml @ 100 mls/hr 1X PREOP PRN IV PRIOR TO PROCEDURE Last administered on 02/06/19at 09:20; Start 02/06/19 at 06:00; Stop 02/06/19 at 18:00; Status DC Gelatin (Gelfoam Size 100) 1 each STK-MED ONCE .ROUTE Last administered on 02/06/19at 10:04; Start 02/06/19 at 06:44; Stop 02/06/19 at 06:45; Status DC Ketorolac Tromethamine (Toradol Im) 60 mg STK-MED ONCE .ROUTE Last administered on 02/06/19at 10:04; Start 02/06/19 at 06:44; Stop 02/06/19 at 06:45; Status DC Thrombin 20,000 unit STK-MED ONCE TP Last administered on 02/06/19at 10:04; Start 02/06/19 at 06:44; Stop 02/06/19 at 06:45; Status DC Propofol 20 ml @ As Directed STK-MED ONCE IV ; Start 02/06/19 at 08:05; Stop 02/06/19 at 08:05; Status DC Dexamethasone Sodium Phosphate (Decadron) 20 mg STK-MED ONCE .ROUTE ; Start 02/06/19 at 08:05; Stop 02/06/19 at 08:05; Status DC Lidocaine HCl (Lidocaine Pf 2% Vial) 5 ml STK-MED ONCE .ROUTE ; Start 02/06/19 at 08:05; Stop 02/06/19 at 08:05; Status DC Phenylephrine HCl (Brennan-Synephrine Inj) 10 mg STK-MED ONCE .ROUTE ; Start 02/06/19 at 08:05; Stop 02/06/19 at 08:05; Status DC Rocuronium [place] (Zemuron) 50 mg STK-MED ONCE .ROUTE ; Start 02/06/19 at 08:05; Stop 02/06/19 at 08:05; Status DC Remifentanil HCl (Ultiva) 2 mg STK-MED ONCE IV ; Start 02/06/19 at 08:09; Stop 02/06/19 at 08:10; Status DC Propofol 100 ml @ As Directed STK-MED ONCE IV ; Start 02/06/19 at 08:12; Stop 02/06/19 at 08:12; Status DC Midazolam HCl (Versed) 2 mg STK-MED ONCE .ROUTE ; Start 02/06/19 at 08:38; Stop 02/06/19 at 08:38; Status DC Ketamine HCl (Ketamine) 50 mg STK-MED ONCE .ROUTE ; Start 02/06/19 at 09:11; Stop 02/06/19 at 09:11; Status DC Glycopyrrolate (Robinul) 1 mg STK-MED ONCE .ROUTE ; Start 02/06/19 at 09:17; Stop 02/06/19 at 09:17; Status DC Ephedrine Sulfate (ePHEDrine PF IN SALINE SYRINGE) 50 mg STK-MED ONCE IV ; Start 02/06/19 at 09:20; Stop 02/06/19 at 09:21; Status DC Desflurane (Suprane) 90 ml STK-MED ONCE IH ; Start 02/06/19 at 11:25; Stop 02/06/19 at 11:26; Status DC Propofol 50 ml @ As Directed STK-MED ONCE IV ; Start 02/06/19 at 12:35; Stop 02/06/19 at 12:35; Status DC Cefazolin Sodium (Ancef) 1 gm STK-MED ONCE .ROUTE ; Start 02/06/19 at 13:07; Stop 02/06/19 at 13:07; Status DC Sodium Chloride (SODIUM CHLORIDE 20ml) 20 ml STK-MED ONCE IJ ; Start 02/06/19 at 13:08; Stop 02/06/19 at 13:08; Status DC Neostigmine Methylsulfate (Neostigmine Methylsulfate) 5 mg STK-MED ONCE .ROUTE ; Start 02/06/19 at 13:08; Stop 02/06/19 at 13:08; Status DC Cefazolin Sodium/ Dextrose 50 ml @ 100 mls/hr 1X ONCE IV Last administered on 02/06/19at 13:20; Start 02/06/19 at 13:00; Stop 02/06/19 at 13:56; Status DC Aspirin (Children'S Aspirin) 81 mg DAILY PO Last administered on 02/07/19at 08:25; Start 02/07/19 at 09:00 Multivitamins (Thera M Plus) 1 tab DAILY PO Last administered on 02/07/19at 08:25; Start 02/07/19 at 09:00 Pantoprazole Sodium (Protonix) 40 mg DAILYAC PO Last administered on 02/07/19at 08:25; Start 02/07/19 at 07:30 Ropinirole HCl (Requip) 4 mg QID PO Last administered on 02/07/19at 13:51; Start 02/06/19 at 21:00 Losartan Potassium (Cozaar) 50 mg DAILY PO Last administered on 02/07/19at 08:24; Start 02/07/19 at 09:00 Acetaminophen (Tylenol) 650 mg PRN Q6HRS PRN PO MILD PAIN / TEMP; Start 02/06/19 at 14:15 Al Hydroxide/Mg Hydroxide (Mylanta Plus Xs) 30 ml PRN Q3HRS PRN PO HEARTBURN / GAS; Start 02/06/19 at 14:15 Calcium Carbonate/ Glycine (Tums) 500 mg PRN Q3HRS PRN PO INDIGESTION; Start 02/06/19 at 14:15 Diphenhydramine HCl (Benadryl) 25 mg PRN Q6HRS PRN PO ITCHING; Start 02/06/19 at 14:15 Naloxone HCl (Narcan) 0.1 mg PRN Q2MIN PRN IV ADMIN; Start 02/06/19 at 14:15 Sodium Chloride (Normal Saline Flush) 3 ml QSHIFT PRN IV AFTER MEDS AND BLOOD DRAWS; Start 02/06/19 at 14:15 Potassium Chloride/Dextrose/ Sod Cl 1,000 ml @ 75 mls/hr [id number] IV Last administered on 02/06/19at 15:49; Start 02/06/19 at 16:00 Naloxone HCl (Narcan) 0.4 mg PRN Q2MIN PRN IV SEE INSTRUCTIONS; Start 02/06/19 at 14:15 Sodium Chloride 1,000 ml @ 25 mls/hr Q24H IV ; Start 02/06/19 at 14:07 Morphine Sulfate (Morphine Sulfate) 1 mg PRN Q1HR PRN IV PAIN; Start 02/06/19 at 14:15 Morphine Sulfate (Morphine Sulfate) 2 mg PRN Q1HR PRN IV PAIN; Start 02/06/19 at 14:15 Methocarbamol (Robaxin) 750 mg PRN TID PRN PO MUSCLE SPASMS; Start 02/06/19 at 14:15 Docusate Sodium (Colace) 100 mg BID PO Last administered on 02/07/19at 08:25; Start 02/06/19 at 21:00 Magnesium Hydroxide (Milk Of Magnesia) 2,400 mg PRN Q12HR PRN PO CONSTIPATION; Start 02/06/19 at 14:15 Ondansetron HCl (Zofran) 4 mg PRN Q6HRS PRN IVP NAUESA, 1ST CHOICE; Start 02/06/19 at 14:15 Cefazolin Sodium (Ancef) 1 gm Q8HRS IVP Last administered on 02/07/19at 13:51; Start 02/06/19 at 22:00; Stop 02/07/19 at 14:01; Status DC Acetaminophen/ Hydrocodone Bitart (Lortab 7.5/325) 1 tab PRN Q6HRS PRN PO PAIN MILD Last administered on 02/06/19at 15:09; Start 02/06/19 at 14:15 Acetaminophen/ Hydrocodone Bitart (Lortab 7.5/325) 2 tab PRN Q6HRS PRN PO PAIN MOD TO SEV Last administered on 02/07/19at 10:11; Start 02/06/19 at 14:15 Active Scripts Active Reported Hydrocodone-Apap 5-325 (Hydrocodone Bit/Acetaminophen) 1 Tab Tablet 1 Tab PO PRN Q6HRS PRN Aspirin 81 Mg Tab.chew Unknown Dose PO Multivitamins (Multivitamin) 1 Each Tablet 1 Tab PO DAILY Ropinirole Hcl 4 Mg Tablet 4 Mg PO QID Omeprazole 40 Mg Capsule. 1 Cap PO DAILY Diovan (Valsartan) 80 Mg Tablet 80 Mg PO DAILY Vitals/I & O Vital Sign - Last 24 Hours 02/06/19 02/06/19 02/06/19 02/06/19 15:33 15:33 16:08 16:56 Temp 97.3 97.3 Pulse 64 Resp 20 20 20 B/P (MAP) 136/58 Pulse Ox 97 96 97 O2 Delivery Room Air Room Air Room Air Room Air 02/06/19 02/06/19 02/06/19 02/06/19 19:20 20:00 21:00 22:13 Temp 97.4 97.4 Pulse 68 Resp 20 18 B/P (MAP) 119/63 (81) Pulse Ox 96 96 O2 Delivery Room Air Room Air Room Air 02/06/19 02/07/19 02/07/19 02/07/19 23:23 03:14 04:35 07:00 Temp 97.6 98.0 98.0 97.6 98.0 98.0 Pulse 64 72 72 Resp 18 18 16 B/P (MAP) 105/48 (67) 103/54 (70) 113/57 (75) Pulse Ox 95 95 95 97 O2 Delivery Room Air Room Air Room Air Room Air 02/07/19 02/07/19 02/07/19 02/07/19 08:00 08:24 10:11 11:00 Temp 97.6 97.6 Pulse 72 66 Resp 16 B/P (MAP) 113/57 112/55 (74) Pulse Ox 98 O2 Delivery Room Air Room Air Room Air 02/07/19 11:11 O2 Delivery Room Air Intake and Output 02/06/19 02/06/19 02/07/19 15:00 23:00 07:00 Intake Total 1200 ml 220 ml 940 ml Output Total 850 ml Balance 350 ml 220 ml 940 ml JUICE CABRERA MD Feb 07, 2019 15:30
[2019-02-07] MEDS: BENZONATATE 100 MG CAPSULE. PO PRN ×2 (15:43→21:19)
[2019-02-07 19:00] VITALS: BP 112/47
[2019-02-07 23:00] VITALS: BP 115/56
[2019-02-08] MEDS: HYDROcodone/APAP 7.5/325MG 1 TAB TABLET PO PRN ×3 (01:39→15:21)
[2019-02-08 03:00] VITALS: BP 110/50
[2019-02-08] MEDS: PANTOPRAZOLE 40 MG TABLET.DR. PO SCH (04:48)
[2019-02-08 07:00] VITALS: BP 116/55
[2019-02-08] MEDS: ASPIRIN CHEWABLE 81 MG TABLET. PO SCH (08:14)
[2019-02-08] MEDS: DOCUSATE SODIUM 100 MG CAPSULE. PO SCH ×2 (08:14→20:45)
[2019-02-08] MEDS: MULTIVITAMIN with MINERAL TABLET. PO SCH (08:15)
[2019-02-08] MEDS: LOSARTAN POTASSIUM 50 MG TABLET. PO SCH (08:15)
[2019-02-08] MEDS: rOPINIRole 1 MG TABLET. PO SCH ×4 (08:15→20:45)
[2019-02-08] MEDS: BENZONATATE 100 MG CAPSULE. PO PRN (08:22)
--- NOTE | 2019-02-08 10:53 | PDOC ---
PROGRESS NOTES Subjective Subjective up in chair incisional pain , controlled with medication Objective Objective Vital Signs Date Time Temp Pulse Resp B/P (MAP) Pulse Ox O2 Delivery O2 Flow Rate FiO2 02/08/19 09:14 Room Air 02/08/19 08:15 61 116/55 02/08/19 07:00 97.8 18 96 97.8 02/06/19 14:51 8.0 Intake and Output 02/08/19 07:00 Output Total 0 ml Balance 0 ml Output Urine Total 0 ml Physical Exam General: Alert, Oriented X3, Cooperative MUSCULOSKELETAL: Other (HERRERA) Skin: Other (dressing C,D,I, flat) Plan Plan of Care encouraged increased activity as tolerated brace when up PT will likely need SNF Comment Review of Relevant I have reviewed the following items melody (where applicable) has been applied. Medications Current Medications Ondansetron HCl (Zofran) 4 mg PRN Q6HRS PRN IV NAUSEA/VOMITING; Start 02/06/19 at 07:00; Stop 02/07/19 at 06:59; Status DC Fentanyl Citrate (Fentanyl 2ml Vial) 25 mcg PRN Q5MIN PRN IV MILD PAIN 1-3; Start 02/06/19 at 07:00; Stop 02/05/19 at 15:25; Status DC Fentanyl Citrate (Fentanyl 2ml Vial) 50 mcg PRN Q5MIN PRN IV MODERATE TO SEVERE PAIN; Start 02/06/19 at 07:00; Stop 02/05/19 at 15:25; Status DC Morphine Sulfate (Morphine Sulfate) 1 mg PRN Q10MIN PRN IV SEVERE PAIN 7-10 Last administered on 02/06/19at 15:33; Start 02/06/19 at 07:00; Stop 02/07/19 at 06:59; Status DC Ringer's Solution 1,000 ml @ 30 mls/hr Q24H IV Last administered on 02/06/19at 06:41; Start 02/06/19 at 07:00; Stop 02/06/19 at 18:59; Status DC Lidocaine HCl (Xylocaine-Mpf 1% 2ml Vial) 2 ml PRN 1X PRN ID PRIOR TO IV START; Start 02/06/19 at 07:00; Stop 02/07/19 at 06:59; Status DC Hydromorphone HCl (Dilaudid) 0.5 mg PRN Q10MIN PRN IV SEV PAIN, Second choice; Start 02/06/19 at 07:00; Stop 02/07/19 at 06:59; Status DC Prochlorperazine Edisylate (Compazine) 5 mg PACU PRN PRN IV NAUSEA, MRX1; Start 02/06/19 at 07:00; Stop 02/07/19 at 06:59; Status DC Bacitracin 42272 unit/Sodium Chloride 1,000 ml @ 1,000 mls/hr 1X ONCE IRR Last administered on 02/06/19 10:04; Start 02/06/19 at 06:00; Stop 02/06/19 at 06:59; Status DC Bupivacaine HCl/ Epinephrine Bitart (Sensorcain-Epi 0.5%-1:968728 Mpf) 30 ml 1X ONCE INJ Last administered on 02/06/19at 10:04; Start 02/06/19 at 08:00; Stop 02/06/19 at 08:01; Status DC Cefazolin Sodium/ Dextrose 50 ml @ 100 mls/hr 1X PREOP PRN IV PRIOR TO PROCEDURE Last administered on 02/06/19at 09:20; Start 02/06/19 at 06:00; Stop 02/06/19 at 18:00; Status DC Gelatin (Gelfoam Size 100) 1 each STK-MED ONCE .ROUTE Last administered on 02/06/19 10:04; Start 02/06/19 at 06:44; Stop 02/06/19 at 06:45; Status DC Ketorolac Tromethamine (Toradol Im) 60 mg STK-MED ONCE .ROUTE Last administered on 02/06/19at 10:04; Start 02/06/19 at 06:44; Stop 02/06/19 at 06:45; Status DC Thrombin 20,000 unit STK-MED ONCE TP Last administered on 02/06/19 10:04; Start 02/06/19 at 06:44; Stop 02/06/19 at 06:45; Status DC Propofol 20 ml @ As Directed STK-MED ONCE IV ; Start 02/06/19 at 08:05; Stop 02/06/19 at 08:05; Status DC Dexamethasone Sodium Phosphate (Decadron) 20 mg STK-MED ONCE .ROUTE ; Start 12/13/19 at 08:05; Stop 02/06/19 at 08:05; Status DC Lidocaine HCl (Lidocaine Pf 2% Vial) 5 ml STK-MED ONCE .ROUTE ; Start 02/06/19 at 08:05; Stop 02/06/19 at 08:05; Status DC Phenylephrine HCl (Brennan-Synephrine Inj) 10 mg STK-MED ONCE .ROUTE ; Start 02/06/19 at 08:05; Stop 02/06/19 at 08:05; Status DC Rocuronium [place] (Zemuron) 50 mg STK-MED ONCE .ROUTE ; Start 02/06/19 at 08:05; Stop 02/06/19 at 08:05; Status DC Remifentanil HCl (Ultiva) 2 mg STK-MED ONCE IV ; Start 02/06/19 at 08:09; Stop 02/06/19 at 08:10; Status DC Propofol 100 ml @ As Directed STK-MED ONCE IV ; Start 02/06/19 at 08:12; Stop 02/06/19 at 08:12; Status DC Midazolam HCl (Versed) 2 mg STK-MED ONCE .ROUTE ; Start 02/06/19 at 08:38; Stop 02/06/19 at 08:38; Status DC Ketamine HCl (Ketamine) 50 mg STK-MED ONCE .ROUTE ; Start 02/06/19 at 09:11; Stop 02/06/19 at 09:11; Status DC Glycopyrrolate (Robinul) 1 mg STK-MED ONCE .ROUTE ; Start 02/06/19 at 09:17; Stop 02/06/19 at 09:17; Status DC Ephedrine Sulfate (ePHEDrine PF IN SALINE SYRINGE) 50 mg STK-MED ONCE IV ; Start 02/06/19 at 09:20; Stop 02/06/19 at 09:21; Status DC Desflurane (Suprane) 90 ml STK-MED ONCE IH ; Start 02/06/19 at 11:25; Stop 02/06/19 at 11:26; Status DC Propofol 50 ml @ As Directed STK-MED ONCE IV ; Start 02/06/19 at 12:35; Stop 02/06/19 at 12:35; Status DC Cefazolin Sodium (Ancef) 1 gm STK-MED ONCE .ROUTE ; Start 02/06/19 at 13:07; Stop 02/06/19 at 13:07; Status DC Sodium Chloride (SODIUM CHLORIDE 20ml) 20 ml STK-MED ONCE IJ ; Start 02/06/19 at 13:08; Stop 02/06/19 at 13:08; Status DC Neostigmine Methylsulfate (Neostigmine Methylsulfate) 5 mg STK-MED ONCE .ROUTE ; Start 02/06/19 at 13:08; Stop 02/06/19 at 13:08; Status DC Cefazolin Sodium/ Dextrose 50 ml @ 100 mls/hr 1X ONCE IV Last administered on 02/06/19at 13:20; Start 02/06/19 at 13:00; Stop 02/06/19 at 13:56; Status DC Aspirin (Children'S Aspirin) 81 mg DAILY PO Last administered on 02/08/19at 08:14; Start 02/07/19 at 09:00 Multivitamins (Thera M Plus) 1 tab DAILY PO Last administered on 02/08/19at 08:15; Start 02/07/19 at 09:00 Pantoprazole Sodium (Protonix) 40 mg DAILYAC PO Last administered on 02/07/19at 08:25; Start 02/07/19 at 07:30 Ropinirole HCl (Requip) 4 mg QID PO Last administered on 02/08/19at 08:15; Start 02/06/19 at 21:00 Losartan Potassium (Cozaar) 50 mg DAILY PO Last administered on 02/08/19at 08:15; Start 02/07/19 at 09:00 Acetaminophen (Tylenol) 650 mg PRN Q6HRS PRN PO MILD PAIN / TEMP; Start 02/06/19 at 14:15 Al Hydroxide/Mg Hydroxide (Mylanta Plus Xs) 30 ml PRN Q3HRS PRN PO HEARTBURN / GAS; Start 02/06/19 at 14:15 Calcium Carbonate/ Glycine (Tums) 500 mg PRN Q3HRS PRN PO INDIGESTION Last administered on 02/07/19at 21:13; Start 02/06/19 at 14:15 Diphenhydramine HCl (Benadryl) 25 mg PRN Q6HRS PRN PO ITCHING; Start 02/06/19 at 14:15 Naloxone HCl (Narcan) 0.1 mg PRN Q2MIN PRN IV ADMIN; Start 02/06/19 at 14:15 Sodium Chloride (Normal Saline Flush) 3 ml QSHIFT PRN IV AFTER MEDS AND BLOOD DRAWS; Start 02/06/19 at 14:15 Potassium Chloride/Dextrose/ Sod Cl 1,000 ml @ 75 mls/hr [id number] IV Last administered on 02/06/19at 15:49; Start 02/06/19 at 16:00; Stop 02/08/19 at 04:54; Status DC Naloxone HCl (Narcan) 0.4 mg PRN Q2MIN PRN IV SEE INSTRUCTIONS; Start 02/06/19 at 14:15 Sodium Chloride 1,000 ml @ 25 mls/hr Q24H IV ; Start 02/06/19 at 14:07; Stop 02/08/19 at 04:54; Status DC Morphine Sulfate (Morphine Sulfate) 1 mg PRN Q1HR PRN IV PAIN; Start 02/06/19 at 14:15 Morphine Sulfate (Morphine Sulfate) 2 mg PRN Q1HR PRN IV PAIN; Start 02/06/19 at 14:15 Methocarbamol (Robaxin) 750 mg PRN TID PRN PO MUSCLE SPASMS; Start 02/06/19 at 14:15 Docusate Sodium (Colace) 100 mg BID PO Last administered on 02/08/19at 08:14; Start 02/06/19 at 21:00 Magnesium Hydroxide (Milk Of Magnesia) 2,400 mg PRN Q12HR PRN PO CONSTIPATION; Start 02/06/19 at 14:15 Ondansetron HCl (Zofran) 4 mg PRN Q6HRS PRN IVP NAUESA, 1ST CHOICE; Start 02/06/19 at 14:15 Cefazolin Sodium (Ancef) 1 gm Q8HRS IVP Last administered on 02/07/19at 13:51; Start 02/06/19 at 22:00; Stop 02/07/19 at 14:01; Status DC Acetaminophen/ Hydrocodone Bitart (Lortab 7.5/325) 1 tab PRN Q6HRS PRN PO PAIN MILD Last administered on 02/06/19at 15:09; Start 02/06/19 at 14:15 Acetaminophen/ Hydrocodone Bitart (Lortab 7.5/325) 2 tab PRN Q6HRS PRN PO PAIN MOD TO SEV Last administered on 02/08/19 08:14; Start 02/06/19 at 14:15 Benzonatate (Tessalon Perle) 100 mg PRN TID PRN PO COUGH Last administered on 02/08/19 08:22; Start 02/07/19 at 15:30 Guaifenesin (Mucinex) 600 mg PRN BID PRN PO COUGH Last administered on 02/08/19at 08:22; Start 02/07/19 at 15:30 Active Scripts Active Reported Hydrocodone-Apap 5-325 (Hydrocodone Bit/Acetaminophen) 1 Tab Tablet 1 Tab PO PRN Q6HRS PRN Aspirin 81 Mg Tab.chew Unknown Dose PO Multivitamins (Multivitamin) 1 Each Tablet 1 Tab PO DAILY Ropinirole Hcl 4 Mg Tablet 4 Mg PO QID Omeprazole 40 Mg Capsule.dr 1 Cap PO DAILY Diovan (Valsartan) 80 Mg Tablet 80 Mg PO DAILY Vitals/I & O Vital Sign - Last 24 Hours 02/07/19 02/07/19 02/07/19 02/07/19 11:00 11:11 15:00 17:45 Temp 97.6 97.8 97.6 97.8 Pulse 66 67 Resp 16 16 B/P (MAP) 112/55 (74) 120/53 (75) Pulse Ox 98 96 O2 Delivery Room Air Room Air Room Air Room Air 02/07/19 02/07/19 02/07/19 02/07/19 18:45 19:00 20:45 23:00 Temp 98.1 98.0 98.1 98.0 Pulse 70 66 Resp 16 16 B/P (MAP) 112/47 (68) 115/56 (75) Pulse Ox 93 96 O2 Delivery Room Air Room Air Room Air Room Air 02/08/19 02/08/19 02/08/19 02/08/19 01:39 03:00 04:48 07:00 Temp 98.0 97.8 98.0 97.8 Pulse 63 61 Resp 16 18 B/P (MAP) 110/50 (70) 116/55 (75) Pulse Ox 96 94 96 O2 Delivery Room Air Room Air Room Air Room Air 02/08/19 02/08/19 02/08/19 02/08/19 08:00 08:14 08:15 09:14 Pulse 61 B/P (MAP) 116/55 O2 Delivery Room Air Room Air Room Air Intake and Output 02/07/19 02/07/19 02/08/19 15:00 23:00 07:00 Output Total 0 ml 0 ml Balance 0 ml 0 ml CONNER SEVILLA APRN Feb 08, 2019 10:53
[2019-02-08 11:00] VITALS: BP 133/63
[2019-02-08] MEDS ORDERED: NICOTINE POLACRILEX 2MG GUM PACKAGE of 12. BC PRN (11:00)
[2019-02-08 15:00] VITALS: BP 103/55
[2019-02-08 19:00] VITALS: BP 109/82
[2019-02-08 23:00] VITALS: BP 129/62
[2019-02-09] MEDS: HYDROcodone/APAP 7.5/325MG 1 TAB TABLET PO PRN ×4 (00:46→22:07)
[2019-02-09 03:00] VITALS: BP 103/45
[2019-02-09 07:00] VITALS: BP 120/46
[2019-02-09] MEDS: DOCUSATE SODIUM 100 MG CAPSULE. PO SCH ×2 (08:07→22:05)
[2019-02-09] MEDS: PANTOPRAZOLE 40 MG TABLET.DR. PO SCH (08:07)
[2019-02-09] MEDS: BENZONATATE 100 MG CAPSULE. PO PRN ×2 (08:07→22:11)
[2019-02-09] MEDS: MULTIVITAMIN with MINERAL TABLET. PO SCH (08:07)
[2019-02-09] MEDS: LOSARTAN POTASSIUM 50 MG TABLET. PO SCH (08:08)
[2019-02-09] MEDS: ASPIRIN CHEWABLE 81 MG TABLET. PO SCH (08:08)
[2019-02-09] MEDS: rOPINIRole 1 MG TABLET. PO SCH ×4 (08:08→22:06)
[2019-02-09 11:00] VITALS: BP 105/58
--- NOTE | 2019-02-09 12:29 | PDOC ---
PROGRESS NOTES Subjective Subjective POD #3 S/P Decompression L2-3 right and revision of fusion L3-5 incisional pain improving radicular pain resolved right foot pain feels like gout Objective Objective Vital Signs Date Time Temp Pulse Resp B/P (MAP) Pulse Ox O2 Delivery O2 Flow Rate FiO2 02/09/19 11:00 98.1 64 16 105/58 (74) 96 Room Air 98.1 02/06/19 14:51 8.0 Intake and Output 02/09/19 07:00 # Voids 5 Physical Exam General: Alert, Oriented X3, Cooperative MUSCULOSKELETAL: Other (HERRERA) Skin: Other (dressing D,I, flat) Plan Plan of Care encouraged increased activity as tolerated PT LSO when up Will ask Dr. Spicer to see regarding gout, per her request Comment Review of Relevant I have reviewed the following items melody (where applicable) has been applied. Medications Current Medications Ondansetron HCl (Zofran) 4 mg PRN Q6HRS PRN IV NAUSEA/VOMITING; Start 02/06/19 at 07:00; Stop 02/07/19 at 06:59; Status DC Fentanyl Citrate (Fentanyl 2ml Vial) 25 mcg PRN Q5MIN PRN IV MILD PAIN 1-3; Start 02/06/19 at 07:00; Stop 02/05/19 at 15:25; Status DC Fentanyl Citrate (Fentanyl 2ml Vial) 50 mcg PRN Q5MIN PRN IV MODERATE TO SEVERE PAIN; Start 02/06/19 at 07:00; Stop 02/05/19 at 15:25; Status DC Morphine Sulfate (Morphine Sulfate) 1 mg PRN Q10MIN PRN IV SEVERE PAIN 7-10 Last administered on 02/06/19at 15:33; Start 02/06/19 at 07:00; Stop 02/07/19 at 06:59; Status DC Ringer's Solution 1,000 ml @ 30 mls/hr Q24H IV Last administered on 02/06/19at 06:41; Start 02/06/19 at 07:00; Stop 02/06/19 at 18:59; Status DC Lidocaine HCl (Xylocaine-Mpf 1% 2ml Vial) 2 ml PRN 1X PRN ID PRIOR TO IV START; Start 02/06/19 at 07:00; Stop 02/07/19 at 06:59; Status DC Hydromorphone HCl (Dilaudid) 0.5 mg PRN Q10MIN PRN IV SEV PAIN, Second choice; Start 02/06/19 at 07:00; Stop 02/07/19 at 06:59; Status DC Prochlorperazine Edisylate (Compazine) 5 mg PACU PRN PRN IV NAUSEA, MRX1; Start 02/06/19 at 07:00; Stop 02/07/19 at 06:59; Status DC Bacitracin 47284 unit/Sodium Chloride 1,000 ml @ 1,000 mls/hr 1X ONCE IRR Last administered on 02/06/19 10:04; Start 02/06/19 at 06:00; Stop 02/06/19 at 06:59; Status DC Bupivacaine HCl/ Epinephrine Bitart (Sensorcain-Epi 0.5%-1:090923 Mpf) 30 ml 1X ONCE INJ Last administered on 02/06/19 10:04; Start 02/06/19 at 08:00; Stop 02/06/19 at 08:01; Status DC Cefazolin Sodium/ Dextrose 50 ml @ 100 mls/hr 1X PREOP PRN IV PRIOR TO PROCEDURE Last administered on 02/06/19at 09:20; Start 02/06/19 at 06:00; Stop 02/06/19 at 18:00; Status DC Gelatin (Gelfoam Size 100) 1 each STK-MED ONCE .ROUTE Last administered on 02/06/19 10:04; Start 02/06/19 at 06:44; Stop 02/06/19 at 06:45; Status DC Ketorolac Tromethamine (Toradol Im) 60 mg STK-MED ONCE .ROUTE Last administered on 02/06/19at 10:04; Start 02/06/19 at 06:44; Stop 02/06/19 at 06:45; Status DC Thrombin 20,000 unit STK-MED ONCE TP Last administered on 02/06/19at 10:04; Start 02/06/19 at 06:44; Stop 02/06/19 at 06:45; Status DC Propofol 20 ml @ As Directed STK-MED ONCE IV ; Start 02/06/19 at 08:05; Stop 02/06/19 at 08:05; Status DC Dexamethasone Sodium Phosphate (Decadron) 20 mg STK-MED ONCE .ROUTE ; Start 02/06/19 at 08:05; Stop 02/06/19 at 08:05; Status DC Lidocaine HCl (Lidocaine Pf 2% Vial) 5 ml STK-MED ONCE .ROUTE ; Start 02/06/19 at 08:05; Stop 02/06/19 at 08:05; Status DC Phenylephrine HCl (Brennan-Synephrine Inj) 10 mg STK-MED ONCE .ROUTE ; Start 02/06/19 at 08:05; Stop 02/06/19 at 08:05; Status DC Rocuronium [place] (Zemuron) 50 mg STK-MED ONCE .ROUTE ; Start 02/06/19 at 08:05; Stop 02/06/19 at 08:05; Status DC Remifentanil HCl (Ultiva) 2 mg STK-MED ONCE IV ; Start 02/06/19 at 08:09; Stop 02/06/19 at 08:10; Status DC Propofol 100 ml @ As Directed STK-MED ONCE IV ; Start 02/06/19 at 08:12; Stop 02/06/19 at 08:12; Status DC Midazolam HCl (Versed) 2 mg STK-MED ONCE .ROUTE ; Start 02/06/19 at 08:38; Stop 02/06/19 at 08:38; Status DC Ketamine HCl (Ketamine) 50 mg STK-MED ONCE .ROUTE ; Start 02/06/19 at 09:11; Stop 02/06/19 at 09:11; Status DC Glycopyrrolate (Robinul) 1 mg STK-MED ONCE .ROUTE ; Start 02/06/19 at 09:17; Stop 02/06/19 at 09:17; Status DC Ephedrine Sulfate (ePHEDrine PF IN SALINE SYRINGE) 50 mg STK-MED ONCE IV ; Start 02/06/19 at 09:20; Stop 02/06/19 at 09:21; Status DC Desflurane (Suprane) 90 ml STK-MED ONCE IH ; Start 02/06/19 at 11:25; Stop 02/06/19 at 11:26; Status DC Propofol 50 ml @ As Directed STK-MED ONCE IV ; Start 02/06/19 at 12:35; Stop 02/06/19 at 12:35; Status DC Cefazolin Sodium (Ancef) 1 gm STK-MED ONCE .ROUTE ; Start 02/06/19 at 13:07; Stop 02/06/19 at 13:07; Status DC Sodium Chloride (SODIUM CHLORIDE 20ml) 20 ml STK-MED ONCE IJ ; Start 02/06/19 at 13:08; Stop 02/06/19 at 13:08; Status DC Neostigmine Methylsulfate (Neostigmine Methylsulfate) 5 mg STK-MED ONCE .ROUTE ; Start 02/06/19 at 13:08; Stop 02/06/19 at 13:08; Status DC Cefazolin Sodium/ Dextrose 50 ml @ 100 mls/hr 1X ONCE IV Last administered on 02/06/19at 13:20; Start 02/06/19 at 13:00; Stop 02/06/19 at 13:56; Status DC Aspirin (Children'S Aspirin) 81 mg DAILY PO Last administered on 02/09/19at 08:08; Start 02/07/19 at 09:00 Multivitamins (Thera M Plus) 1 tab DAILY PO Last administered on 02/09/19at 08:07; Start 02/07/19 at 09:00 Pantoprazole Sodium (Protonix) 40 mg DAILYAC PO Last administered on 02/09/19at 08:07; Start 02/07/19 at 07:30 Ropinirole HCl (Requip) 4 mg QID PO Last administered on 02/09/19at 08:08; Start 02/06/19 at 21:00 Losartan Potassium (Cozaar) 50 mg DAILY PO Last administered on 02/09/19at 08:08; Start 02/07/19 at 09:00 Acetaminophen (Tylenol) 650 mg PRN Q6HRS PRN PO MILD PAIN / TEMP; Start 02/06/19 at 14:15 Al Hydroxide/Mg Hydroxide (Mylanta Plus Xs) 30 ml PRN Q3HRS PRN PO HEARTBURN / GAS; Start 02/06/19 at 14:15 Calcium Carbonate/ Glycine (Tums) 500 mg PRN Q3HRS PRN PO INDIGESTION Last administered on 02/07/19at 21:13; Start 02/06/19 at 14:15 Diphenhydramine HCl (Benadryl) 25 mg PRN Q6HRS PRN PO ITCHING; Start 02/06/19 at 14:15 Naloxone HCl (Narcan) 0.1 mg PRN Q2MIN PRN IV ADMIN; Start 02/06/19 at 14:15 Sodium Chloride (Normal Saline Flush) 3 ml QSHIFT PRN IV AFTER MEDS AND BLOOD DRAWS; Start 02/06/19 at 14:15 Potassium Chloride/Dextrose/ Sod Cl 1,000 ml @ 75 mls/hr [id number] IV Last administered on 02/06/19at 15:49; Start 02/06/19 at 16:00; Stop 02/08/19 at 04:54; Status DC Naloxone HCl (Narcan) 0.4 mg PRN Q2MIN PRN IV SEE INSTRUCTIONS; Start 02/06/19 at 14:15 Sodium Chloride 1,000 ml @ 25 mls/hr Q24H IV ; Start 02/06/19 at 14:07; Stop 02/08/19 at 04:54; Status DC Morphine Sulfate (Morphine Sulfate) 1 mg PRN Q1HR PRN IV PAIN; Start 02/06/19 at 14:15 Morphine Sulfate (Morphine Sulfate) 2 mg PRN Q1HR PRN IV PAIN; Start 02/06/19 at 14:15 Methocarbamol (Robaxin) 750 mg PRN TID PRN PO MUSCLE SPASMS; Start 02/06/19 at 14:15 Docusate Sodium (Colace) 100 mg BID PO Last administered on 02/09/19at 08:07; Start 02/06/19 at 21:00 Magnesium Hydroxide (Milk Of Magnesia) 2,400 mg PRN Q12HR PRN PO CONSTIPATION; Start 02/06/19 at 14:15 Ondansetron HCl (Zofran) 4 mg PRN Q6HRS PRN IVP NAUESA, 1ST CHOICE; Start 02/06/19 at 14:15 Cefazolin Sodium (Ancef) 1 gm Q8HRS IVP Last administered on 02/07/19at 13:51; Start 02/06/19 at 22:00; Stop 02/07/19 at 14:01; Status DC Acetaminophen/ Hydrocodone Bitart (Lortab 7.5/325) 1 tab PRN Q6HRS PRN PO PAIN MILD, 2nd CHOICE Last administered on 02/06/19at 15:09; Start 02/06/19 at 14:15 Acetaminophen/ Hydrocodone Bitart (Lortab 7.5/325) 2 tab PRN Q6HRS PRN PO PAIN MOD TO SEV Last administered on 02/09/19at 08:08; Start 02/06/19 at 14:15 Benzonatate (Tessalon Perle) 100 mg PRN TID PRN PO COUGH Last administered on 02/09/19at 08:07; Start 02/07/19 at 15:30 Guaifenesin (Mucinex) 600 mg PRN BID PRN PO COUGH Last administered on 02/09/19at 08:08; Start 02/07/19 at 15:30 Nicotine Polacrilex (Nicorette Gum) 1 each PRN Q1HR PRN BC SMOKING CESSATION Last administered on 02/08/19at 12:06; Start 02/08/19 at 11:00 Active Scripts Active Reported Hydrocodone-Apap 5-325 (Hydrocodone Bit/Acetaminophen) 1 Tab Tablet 1 Tab PO PRN Q6HRS PRN Aspirin 81 Mg Tab.chew Unknown Dose PO Multivitamins (Multivitamin) 1 Each Tablet 1 Tab PO DAILY Ropinirole Hcl 4 Mg Tablet 4 Mg PO QID Omeprazole 40 Mg Capsule.dr 1 Cap PO DAILY Diovan (Valsartan) 80 Mg Tablet 80 Mg PO DAILY Vitals/I & O Vital Sign - Last 24 Hours 02/08/19 02/08/19 02/08/19 02/08/19 15:00 15:21 16:21 19:00 Temp 97.9 98.0 97.9 98.0 Pulse 64 66 Resp 16 18 B/P (MAP) 103/55 (71) 109/82 (91) Pulse Ox 96 94 O2 Delivery Room Air Room Air Room Air Room Air 02/08/19 02/08/19 02/09/19 02/09/19 20:05 23:00 03:00 07:00 Temp 98.8 98.1 97.6 98.8 98.1 97.6 Pulse 70 67 62 Resp 18 18 16 B/P (MAP) 129/62 (84) 103/45 (64) 120/46 (70) Pulse Ox 96 93 97 O2 Delivery Room Air Room Air Room Air Room Air 02/09/19 02/09/19 02/09/19 02/09/19 08:00 08:08 08:08 09:08 Pulse 62 B/P (MAP) 120/46 O2 Delivery Room Air Room Air Room Air 02/09/19 11:00 Temp 98.1 98.1 Pulse 64 Resp 16 B/P (MAP) 105/58 (74) Pulse Ox 96 O2 Delivery Room Air CONNER SEVILLA APRN Feb 09, 2019 12:29
[2019-02-09] MEDS: MAGNESIUM HYDROXIDE 2,400 MG/30 ML ORAL.SUSP. PO PRN ×2 (14:10→22:06)
[2019-02-09] MEDS ORDERED: COLCHICINE 0.6 MG TABLET PO ONE (14:45)
--- NOTE | 2019-02-09 14:48 | NUR ---
SW following for discharge planning. Chart reviewed, discussed with RN. Per RN, pt would like SNU referral sent to [facility] (ph: [phone], fax: [phone]). SW faxed referral, awaiting acceptance decision. SW will continue to follow.
[2019-02-09 15:00] VITALS: BP 102/72
[2019-02-09] MEDS: COLCHICINE 0.6 MG TABLET PO SCH (16:49)
[2019-02-09 19:00] VITALS: BP 100/46
[2019-02-09 23:17] VITALS: BP 99/47
[2019-02-10 03:00] VITALS: BP 108/55
[2019-02-10 07:15] VITALS: BP 113/54
[2019-02-10] MEDS: LOSARTAN POTASSIUM 50 MG TABLET. PO SCH (09:45)
[2019-02-10] MEDS: ASPIRIN CHEWABLE 81 MG TABLET. PO SCH (09:45)
[2019-02-10] MEDS: COLCHICINE 0.6 MG TABLET PO SCH (09:45)
[2019-02-10] MEDS: PANTOPRAZOLE 40 MG TABLET.DR. PO SCH (09:45)
[2019-02-10] MEDS ORDERED: predniSONE 10 MG TABLET PO ONE (09:45)
[2019-02-10] MEDS: MULTIVITAMIN with MINERAL TABLET. PO SCH (09:45)
[2019-02-10] MEDS: rOPINIRole 1 MG TABLET. PO SCH (09:46)
[2019-02-10] MEDS: DOCUSATE SODIUM 100 MG CAPSULE. PO SCH (09:46)
[2019-02-10] MEDS: HYDROcodone/APAP 7.5/325MG 1 TAB TABLET PO PRN (09:50)
--- NOTE | 2019-02-10 10:07 | PATHOLOGY ---
[facility] Accession Number: [id number] . 01 Material submitted: . vertebral column - LUMBAR DECOMPRESSION . 01 Clinical history: . Pseudoarthrosis, lumbar radiculopathy. . 02 Diagnosis: Segments of fibrocartilaginous and fibroadipose tissue and bone, lumbar decompression: - Degenerative changes of fibrocartilaginous tissue. . (JPM:ryanne; 02/09/2019) QMS 02/10/2019 0938 Local . 02 Comment: There is no evidence of an acute inflammatory process or malignancy. . 02 Electronically signed: . Randall Kendall MD, Pathologist NPI- [id number] . 01 Gross description: . Received in formalin labeled "Risalvato, Christa, lumbar decompression" is a 3.0 x 2.2 x 0.5 cm aggregate of corbin-white friable soft tissue and corbin-white bone. The specimen is submitted entirely without sectioning in cassette A1. ([facility]; 02/07/2019) [facility] 02/07/2019 1009 Local . 02 Pathologist provided ICD-10: M54.16 . 02 CPT . 953404, [id number] Specimen Comment: A courtesy copy of this report has been sent to [phone], [phone] Specimen Comment: [id number] Specimen Comment: Report sent to and Performed at: 01 [facility] [address], [place] [id number] MD Per Tolentino MD Phone: [phone] Performed at: 02 [facility] [address], [place] [id number] MD Randall Kendall MD Phone: [phone]
--- NOTE | 2019-02-10 10:51 | SNU/HH DC ---
DISCHARGE ORDERS DISCHARGE INFORMATION: DISCHARGE DATE: Feb 10, 2019 FINAL DIAGNOSIS pseudoarthrosis of lumbar spine CONDITION ON DISCHARGE: Stable CODE STATUS: Code Status: Full CUSTODIAL: SNF STAY <30 DAYS: Yes HOSPICE: HOSPICE: No HOSPICE EVAL & TREAT: No POST DISCHARGE ORDERS: ACTIVITY ORDERS: Activity as tolerated, Avoid exertion, Progressive ambulation BATHING ORDERS: No Tub Bath until see DIET AFTER DISCHARGE: Regular WOUND/INCISION CARE: Ice to area for comfort OTHER WOUND INSTRUCTIONS: daily dressing change and as needed, 4 x4 and tape FOLLOW-UP: PHYSICIAN FOLLOW-UP: Dr. Cabrera in 2 weeks [phone] ADDITIONAL FOLLOW-UP: Dr. Spicer TREATMENT/EQUIPMENT ORDERS: Physical Therapy For: Safety DISCHARGE MEDICATIONS: Home Meds Reported Medications Hydrocodone Bit/Acetaminophen (HYDROCODONE-APAP 5-325 ) 1 Tab Tablet, 1 TAB PO PRN Q6HRS PRN for PAIN, TAB 0 Refills 02/05/19 Aspirin (ASPIRIN) 81 Mg Tab.chew, PO, TAB.CHEW 02/04/19 Multivitamin (MULTIVITAMINS) 1 Each Tablet, 1 TAB PO DAILY for vitamin, #90 TAB 3 Refills 07/15/18 Ropinirole Hcl (ROPINIROLE HCL) 4 Mg Tablet, 4 MG PO QID for RLS, TAB 07/15/18 Omeprazole (OMEPRAZOLE) 40 Mg Capsule., 1 CAP PO DAILY for reflux, #30 CAP 3 Refills 07/15/18 Valsartan (DIOVAN) 80 Mg Tablet, 80 MG PO DAILY for bp, TAB 07/15/18 JUICE CABRERA MD Feb 10, 2019 10:51
[2019-02-10 11:06] VITALS: BP 98/61
--- NOTE | 2019-02-10 11:49 | PDOC ---
PROGRESS NOTES Subjective Subjective up in chair back is sore but well controlled with medication right foot pain, gout Objective Objective Vital Signs Date Time Temp Pulse Resp B/P (MAP) Pulse Ox O2 Delivery O2 Flow Rate FiO2 02/10/19 09:50 96 Room Air 94.0 02/10/19 09:45 63 113/54 02/10/19 07:15 97.8 20 97.8 Intake and Output 02/10/19 07:00 Intake Total 1310 ml Balance 1310 ml Intake Oral 1310 ml # Voids 4 Physical Exam General: Alert, Oriented X3, Cooperative, No acute distress MUSCULOSKELETAL: Other (HERRERA) Neuro: Normal speech Skin: Other (dressing changed, brisa intact, dry) Plan Plan of Care SNF f/u 2 weeks Comment Review of Relevant I have reviewed the following items melody (where applicable) has been applied. Medications Current Medications Ondansetron HCl (Zofran) 4 mg PRN Q6HRS PRN IV NAUSEA/VOMITING; Start 02/06/19 at 07:00; Stop 02/07/19 at 06:59; Status DC Fentanyl Citrate (Fentanyl 2ml Vial) 25 mcg PRN Q5MIN PRN IV MILD PAIN 1-3; Start 02/06/19 at 07:00; Stop 02/05/19 at 15:25; Status DC Fentanyl Citrate (Fentanyl 2ml Vial) 50 mcg PRN Q5MIN PRN IV MODERATE TO SEVERE PAIN; Start 02/06/19 at 07:00; Stop 02/05/19 at 15:25; Status DC Morphine Sulfate (Morphine Sulfate) 1 mg PRN Q10MIN PRN IV SEVERE PAIN 7-10 Last administered on 02/06/19at 15:33; Start 02/06/19 at 07:00; Stop 02/07/19 at 06:59; Status DC Ringer's Solution 1,000 ml @ 30 mls/hr Q24H IV Last administered on 02/06/19at 06:41; Start 02/06/19 at 07:00; Stop 02/06/19 at 18:59; Status DC Lidocaine HCl (Xylocaine-Mpf 1% 2ml Vial) 2 ml PRN 1X PRN ID PRIOR TO IV START; Start 02/06/19 at 07:00; Stop 02/07/19 at 06:59; Status DC Hydromorphone HCl (Dilaudid) 0.5 mg PRN Q10MIN PRN IV SEV PAIN, Second choice; Start 02/06/19 at 07:00; Stop 02/07/19 at 06:59; Status DC Prochlorperazine Edisylate (Compazine) 5 mg PACU PRN PRN IV NAUSEA, MRX1; Start 02/06/19 at 07:00; Stop 02/07/19 at 06:59; Status DC Bacitracin 08999 unit/Sodium Chloride 1,000 ml @ 1,000 mls/hr 1X ONCE IRR Last administered on 02/06/19 10:04; Start 02/06/19 at 06:00; Stop 02/06/19 at 06:59; Status DC Bupivacaine HCl/ Epinephrine Bitart (Sensorcain-Epi 0.5%-1:131325 Mpf) 30 ml 1X ONCE INJ Last administered on 02/06/19 10:04; Start 02/06/19 at 08:00; Stop 02/06/19 at 08:01; Status DC Cefazolin Sodium/ Dextrose 50 ml @ 100 mls/hr 1X PREOP PRN IV PRIOR TO PROCEDURE Last administered on 02/06/19 09:20; Start 02/06/19 at 06:00; Stop 02/06/19 at 18:00; Status DC Gelatin (Gelfoam Size 100) 1 each STK-MED ONCE .ROUTE Last administered on 02/06/19at 10:04; Start 02/06/19 at 06:44; Stop 02/06/19 at 06:45; Status DC Ketorolac Tromethamine (Toradol Im) 60 mg STK-MED ONCE .ROUTE Last administered on 02/06/19 10:04; Start 02/06/19 at 06:44; Stop 02/06/19 at 06:45; Status DC Thrombin 20,000 unit STK-MED ONCE TP Last administered on 02/06/19 10:04; Start 02/06/19 at 06:44; Stop 02/06/19 at 06:45; Status DC Propofol 20 ml @ As Directed STK-MED ONCE IV ; Start 02/06/19 at 08:05; Stop 02/06/19 at 08:05; Status DC Dexamethasone Sodium Phosphate (Decadron) 20 mg STK-MED ONCE .ROUTE ; Start 02/06/19 at 08:05; Stop 02/06/19 at 08:05; Status DC Lidocaine HCl (Lidocaine Pf 2% Vial) 5 ml STK-MED ONCE .ROUTE ; Start 02/06/19 at 08:05; Stop 02/06/19 at 08:05; Status DC Phenylephrine HCl (Brennan-Synephrine Inj) 10 mg STK-MED ONCE .ROUTE ; Start 02/06/19 at 08:05; Stop 02/06/19 at 08:05; Status DC Rocuronium Silver Star (Zemuron) 50 mg STK-MED ONCE .ROUTE ; Start 02/06/19 at 08:05; Stop 02/06/19 at 08:05; Status DC Remifentanil HCl (Ultiva) 2 mg STK-MED ONCE IV ; Start 02/06/19 at 08:09; Stop 02/06/19 at 08:10; Status DC Propofol 100 ml @ As Directed STK-MED ONCE IV ; Start 02/06/19 at 08:12; Stop 02/06/19 at 08:12; Status DC Midazolam HCl (Versed) 2 mg STK-MED ONCE .ROUTE ; Start 02/06/19 at 08:38; Stop 02/06/19 at 08:38; Status DC Ketamine HCl (Ketamine) 50 mg STK-MED ONCE .ROUTE ; Start 02/06/19 at 09:11; Stop 02/06/19 at 09:11; Status DC Glycopyrrolate (Robinul) 1 mg STK-MED ONCE .ROUTE ; Start 02/06/19 at 09:17; Stop 02/06/19 at 09:17; Status DC Ephedrine Sulfate (ePHEDrine PF IN SALINE SYRINGE) 50 mg STK-MED ONCE IV ; Start 02/06/19 at 09:20; Stop 02/06/19 at 09:21; Status DC Desflurane (Suprane) 90 ml STK-MED ONCE IH ; Start 02/06/19 at 11:25; Stop 02/06/19 at 11:26; Status DC Propofol 50 ml @ As Directed STK-MED ONCE IV ; Start 02/06/19 at 12:35; Stop 02/06/19 at 12:35; Status DC Cefazolin Sodium (Ancef) 1 gm STK-MED ONCE .ROUTE ; Start 02/06/19 at 13:07; Stop 02/06/19 at 13:07; Status DC Sodium Chloride (SODIUM CHLORIDE 20ml) 20 ml STK-MED ONCE IJ ; Start 02/06/19 at 13:08; Stop 02/06/19 at 13:08; Status DC Neostigmine Methylsulfate (Neostigmine Methylsulfate) 5 mg STK-MED ONCE .ROUTE ; Start 02/06/19 at 13:08; Stop 02/06/19 at 13:08; Status DC Cefazolin Sodium/ Dextrose 50 ml @ 100 mls/hr 1X ONCE IV Last administered on 02/06/19at 13:20; Start 02/06/19 at 13:00; Stop 02/06/19 at 13:56; Status DC Aspirin (Children'S Aspirin) 81 mg DAILY PO Last administered on 02/10/19at 09:45; Start 02/07/19 at 09:00 Multivitamins (Thera M Plus) 1 tab DAILY PO Last administered on 02/10/19at 09:45; Start 02/07/19 at 09:00 Pantoprazole Sodium (Protonix) 40 mg DAILYAC PO Last administered on 02/10/19at 09:45; Start 02/07/19 at 07:30 Ropinirole HCl (Requip) 4 mg QID PO Last administered on 02/10/19at 09:46; Start 02/06/19 at 21:00 Losartan Potassium (Cozaar) 50 mg DAILY PO Last administered on 02/10/19at 09:45; Start 02/07/19 at 09:00 Acetaminophen (Tylenol) 650 mg PRN Q6HRS PRN PO MILD PAIN / TEMP; Start 02/06/19 at 14:15 Al Hydroxide/Mg Hydroxide (Mylanta Plus Xs) 30 ml PRN Q3HRS PRN PO HEARTBURN / GAS; Start 02/06/19 at 14:15 Calcium Carbonate/ Glycine (Tums) 500 mg PRN Q3HRS PRN PO INDIGESTION Last administered on 02/07/19at 21:13; Start 02/06/19 at 14:15 Diphenhydramine HCl (Benadryl) 25 mg PRN Q6HRS PRN PO ITCHING; Start 02/06/19 at 14:15 Naloxone HCl (Narcan) 0.1 mg PRN Q2MIN PRN IV ADMIN; Start 02/06/19 at 14:15 Sodium Chloride (Normal Saline Flush) 3 ml QSHIFT PRN IV AFTER MEDS AND BLOOD DRAWS; Start 02/06/19 at 14:15 Potassium Chloride/Dextrose/ Sod Cl 1,000 ml @ 75 mls/hr Q02T95I IV Last administered on 02/06/19at 15:49; Start 02/06/19 at 16:00; Stop 02/08/19 at 04:54; Status DC Naloxone HCl (Narcan) 0.4 mg PRN Q2MIN PRN IV SEE INSTRUCTIONS; Start 02/06/19 at 14:15 Sodium Chloride 1,000 ml @ 25 mls/hr Q24H IV ; Start 02/06/19 at 14:07; Stop 02/08/19 at 04:54; Status DC Morphine Sulfate (Morphine Sulfate) 1 mg PRN Q1HR PRN IV PAIN; Start 02/06/19 at 14:15 Morphine Sulfate (Morphine Sulfate) 2 mg PRN Q1HR PRN IV PAIN; Start 02/06/19 at 14:15 Methocarbamol (Robaxin) 750 mg PRN TID PRN PO MUSCLE SPASMS; Start 02/06/19 at 14:15 Docusate Sodium (Colace) 100 mg BID PO Last administered on 02/10/19at 09:46; Start 02/06/19 at 21:00 Magnesium Hydroxide (Milk Of Magnesia) 2,400 mg PRN Q12HR PRN PO CONSTIPATION Last administered on 02/09/19at 22:06; Start 02/06/19 at 14:15 Ondansetron HCl (Zofran) 4 mg PRN Q6HRS PRN IVP NAUESA, 1ST CHOICE; Start 02/06/19 at 14:15 Cefazolin Sodium (Ancef) 1 gm Q8HRS IVP Last administered on 02/07/19at 13:51; Start 02/06/19 at 22:00; Stop 02/07/19 at 14:01; Status DC Acetaminophen/ Hydrocodone Bitart (Lortab 7.5/325) 1 tab PRN Q6HRS PRN PO PAIN MILD, 2nd CHOICE Last administered on 02/10/19at 09:50; Start 02/06/19 at 14:15 Acetaminophen/ Hydrocodone Bitart (Lortab 7.5/325) 2 tab PRN Q6HRS PRN PO PAIN MOD TO SEV Last administered on 02/09/19 22:07; Start 02/06/19 at 14:15 Benzonatate (Tessalon Perle) 100 mg PRN TID PRN PO COUGH Last administered on 02/09/19at 22:11; Start 02/07/19 at 15:30 Guaifenesin (Mucinex) 600 mg PRN BID PRN PO COUGH Last administered on 22:11; Start 02/07/19 at 15:30 Nicotine Polacrilex (Nicorette Gum) 1 each PRN Q1HR PRN BC SMOKING CESSATION Last administered on 02/08/19 12:06; Start 02/08/19 at 11:00 Colchicine (Colcrys) 0.6 mg 1X ONCE PO Last administered on 02/09/19at 15:39; Start 02/09/19 at 14:45; Stop 02/09/19 at 14:46; Status DC Colchicine (Colcrys) 0.6 mg DAILY PO Last administered on 02/10/19at 09:45; Start 02/09/19 at 16:00 Prednisone (Prednisone) 50 mg 1X ONCE PO Last administered on 02/10/19 09:51; Start 02/10/19 at 09:45; Stop 02/10/19 at 09:46; Status DC Active Scripts Active Reported Hydrocodone-Apap 5-325 (Hydrocodone Bit/Acetaminophen) 1 Tab Tablet 1 Tab PO PRN Q6HRS PRN Aspirin 81 Mg Tab.chew Unknown Dose PO Multivitamins (Multivitamin) 1 Each Tablet 1 Tab PO DAILY Ropinirole Hcl 4 Mg Tablet 4 Mg PO QID Omeprazole 40 Mg Capsule. 1 Cap PO DAILY Diovan (Valsartan) 80 Mg Tablet 80 Mg PO DAILY Vitals/I & O Vital Sign - Last 24 Hours 02/09/19 02/09/19 02/09/19 02/09/19 15:00 15:39 16:39 19:00 Temp 97.7 98.1 97.7 98.1 Pulse 65 64 Resp 16 16 B/P (MAP) 102/72 (82) 100/46 (64) Pulse Ox 96 O2 Delivery Room Air Room Air Room Air Room Air O2 Flow Rate 94.0 02/09/19 02/09/19 02/09/19 02/09/19 20:00 22:07 23:07 23:17 Temp 98.3 98.3 Pulse 61 Resp 18 18 16 B/P (MAP) 99/47 (64) Pulse Ox 96 96 94 O2 Delivery Room Air Room Air Room Air Room Air O2 Flow Rate 94.0 94.0 02/10/19 02/10/19 02/10/19 02/10/19 03:00 07:15 08:00 09:45 Temp 97.4 97.8 97.4 97.8 Pulse 61 63 63 Resp 16 20 B/P (MAP) 108/55 (72) 113/54 (73) 113/54 Pulse Ox 96 96 O2 Delivery Room Air Room Air Room Air 02/10/19 09:50 Pulse Ox 96 O2 Delivery Room Air O2 Flow Rate 94.0 Intake and Output 02/09/19 02/09/19 02/10/19 15:00 23:00 07:00 Intake Total 600 ml 710 ml Balance 600 ml 710 ml CONNER SEVILLA [employer]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
[2019-02-10] MEDS ORDERED: HYDROcodone/APAP 5/325MG 1 TAB TABLET PO PRN ×2 (12:00)
--- NOTE | 2019-02-10 12:03 | NUR ---
SW following. Pt discharging to [facility]. Transport set up for [id number] today. RN notified, RN notifying family. No further SW needs.
--- NOTE | 2019-02-10 14:08 | NUR ---
Discharge Note: LIN CONSTANTINO [address] Discharge instructions and discharge home medications reviewed with Other facility and a copy given. All questions have been answered and understanding verbalized. The following instructions and handouts were given: DIET, ACTIVITY, MEDICATION LIST AND FOLLOW UP INSTRUCTIONS PROVIDED TO [facility]. ATTEMPTED TO CALL REPORT X2 AND PLACED ON HOLD. REPORT GIVEN TO KIANA BANUELOS. THIS RN SENT CALL BACK NUMBER WITH [employer] IF ANY FURTHER QUESTIONS. Discontinued lines and drains: Peripheral IV DISCONTINUED ON PREVIOUS DATE AND CATHETER intact. Patient [facility] to [facility]
--- NOTE | 2019-02-10 23:33 | CONS ---
DATE OF CONSULTATION: 02/10/2019 PHYSICIAN REQUESTING CONSULTATION: Dr. Richard Chiu CHIEF COMPLAINT AND HISTORY OF PRESENT ILLNESS: This 73-year-old white female well known to me from followup in the office. The patient had lumbar decompression surgery by Dr. Chiu a few days ago. At this point, we are seeing her for medical issues following surgery, which stay includes an acute gout attack of her left lateral foot area. PAST MEDICAL HISTORY: Remarkable for hypertension, history of a left heel spur, anxiety, restless legs, hyperlipidemia, and obstructive sleep apnea. MEDICATIONS: Brought with the patient listed on the computer and have been addressed. ALLERGIES: SHE IS ALLERGIC TO STATINS, CODEINE, FENTANYL, AND LATEX. SOCIAL HISTORY: She has a [id number] smoking history, drinks socially, does not use drugs, is , and lives at home with her . FAMILY HISTORY: Noncontributory. REVIEW OF SYSTEMS: Remarkable for extreme pain in her left foot starting over the last day. Her surgical symptoms with back and particularly right hip pain are all relieved. Now status post surgery, she has surgical pain in her back, but feels like this is livable. PHYSICAL EXAMINATION: GENERAL: She is a well-developed, well-nourished white female who is uncomfortable. VITAL SIGNS: Stable. She is afebrile. HEAD, EYES, EARS, NOSE AND THROAT: Unremarkable. NECK: Supple, without adenopathy or thyromegaly. CHEST: Clear to auscultation and percussion. HEART: Regular rate and rhythm without S3, S4 or murmur. ABDOMEN: Soft, nontender, without hepatosplenomegaly or masses. EXTREMITIES: Reveal redness, warmth to the lateral left foot that is exquisitely tender to touch consistent with gout, which she has had before and states it feels the same. IMPRESSION: 1. Status post surgery. 2. Other problems listed above. 3. Acute gout. PLAN: We will give her a dose of prednisone 50 mg x 1 today and see how she is doing tomorrow; otherwise, do the same. WILLIS SCANLON MD DR: KYMBERLY/sharifa JOB#: [id number] / [id number]
== END 2019-02-10 14:10 | DRG 460 ==
LOC: OPSVCIP 05:55 → 4 NORTH 15:29
PROVIDERS: ADMIT Neurological Surgery; ATTEND Neurological Surgery
PROC: 0SG10K1 Fusion of 2 or more Lumbar Vertebral Joints with Nonautologous Tissue Substitute, Posterior Approach, Posterior Column, Open Approach (ICD-10-PCS; 2019-02-06)
PROC: 01NB0ZZ Release Lumbar Nerve, Open Approach (ICD-10-PCS; 2019-02-06)
PROC: 00NY0ZZ Release Lumbar Spinal Cord, Open Approach (ICD-10-PCS; 2019-02-06)
PROC: 4A11X4G Monitoring of Peripheral Nervous Electrical Activity, Intraoperative, External Approach (ICD-10-PCS; 2019-02-06)
PROC: 0SP004Z Removal of Internal Fixation Device from Lumbar Vertebral Joint, Open Approach (ICD-10-PCS; principal; 2019-02-06 08:30)
DX: M48.061 Spinal stenosis, lumbar region without neurogenic claudication (principal); M96.0 Pseudarthrosis after fusion or arthrodesis; M54.16 Radiculopathy, lumbar region; E78.5 Hyperlipidemia, unspecified; F17.200 Nicotine dependence, unspecified, uncomplicated; G25.81 Restless legs syndrome; I10 Essential (primary) hypertension; M10.9 Gout, unspecified; M71.30 Other bursal cyst, unspecified site; Z82.49 Family history of ischemic heart disease and other diseases of the circulatory system; Z90.710 Acquired absence of both cervix and uterus; Z96.653 Presence of artificial knee joint, bilateral; Z98.1 Arthrodesis status; F41.9 Anxiety disorder, unspecified; G47.33 Obstructive sleep apnea (adult) (pediatric); M19.90 Unspecified osteoarthritis, unspecified site; Z88.8 Allergy status to other drugs, medicaments and biological substances; Z91.040 Latex allergy status
CPT/HCPCS: 36415; 72131; 72158; 76000; 80053; 82565; 85025; 85610; 85730; 86850; 86900; 86901; 87641; 88304; 88311; 99406; A4314; A7015; C1713; J0171; J0690; J0696; J1100; J1885; J2001; J2270; J2704; J2710; J3490; J7030; J7120; J7512; 97110; 97530; G0378

== ENCOUNTER 2019-02-14 18:47 | Emergency (ER) | payer MEDICARE, OTHER ==
[~2019-02-14] VITALS: Ht 167.6 cm; Wt 86.2 kg
--- NOTE | 2019-02-14 20:46 | RAD ---
EXAM: Left lower extremity venous Doppler sonogram. HISTORY: Pain and swelling. TECHNIQUE: Hester scale and color Doppler sonographic evaluation of the left lower extremity veins with spectral waveform analysis was performed. FINDINGS: There is normal color flow, normal compressibility and there are normal spectral waveforms in the common femoral, superficial femoral, popliteal, posterior tibial and greater saphenous veins. IMPRESSION: No Doppler evidence of lower extremity deep venous thrombosis. Electronically signed by: Sirisha Sandoval MD (02/14/2019 8:44 PM) [facility]
--- NOTE | 2019-02-14 20:50 | PHYS DOC ---
Past Medical History Past Medical History: Arthritis, Hypertension Past Surgical History: Other Additional Past Surgical Histo: BACK Alcohol Use: Occasionally Drug Use: None Adult General Chief Complaint Chief Complaint: LOWER EXTREMITY SWELLING HPI HPI Patient is a 73 year old female who presents to the emergency department via EMS with complaints of left leg swelling. Patient states she had back surgery at this facility on February 062018. On 10 February she was sent across the street for rehabilitation. She states that she has noticed that her left leg has been swollen for the last 3 days. She denies any redness, warmth, numbness, tingling, or weakness of the affected extremity. Patient also denies any fever, shortness of breath, chest pain, cough, palpitations, hematuria, increased urinary frequency, or dysuria. She currently rates her pain a 3-4 out of 10 on the pain scale, she denies any alleviating factors. She denies any pain in her lower left extremity, the pain is in her low back where her surgery was. Patient states she has had some intermittent nausea but denies any vomiting. All other ROS is neg unless otherwise noted in HPI. Review of Systems Review of Systems See Above Allergies Allergies Allergies Coded Allergies Type Severity Reaction Last Updated Verified fentanyl Allergy Intermediate 02/06/19 Yes latex Allergy Intermediate Rash 02/06/19 Yes Tpbzaex-Nxs-Mzp Reductase Inhibitor Adverse Reaction Intermediate muscle pain 02/06/19 Yes codeine Adverse Reaction Intermediate Nausea and Vomiting 02/06/19 Yes Physical Exam Physical Exam See Above Constitutional: Well developed, well nourished, no acute distress, non-toxic appearance. [] HENT: Normocephalic, atraumatic, bilateral external ears normal, nose normal. [] Eyes: PERRLA, EOMI, conjunctiva normal, no discharge. [] Neck: Normal range of motion, no stridor. [] Cardiovascular:Heart rate regular rhythm, no murmur [] Lungs & Thorax: Bilateral breath sounds clear to auscultation, Respirations even and unlabored, no retractions, no respiratory distress [] Skin: Warm, dry, no erythema, no rash. [] Extremities: LLE: No calf tenderness, no cyanosis, no clubbing, ROM intact, 1+ edema; pedal and posterior tibial pulses 2+. [] Neurologic: Alert and oriented X 3, no focal deficits noted. [] Psychologic: Affect normal, judgement normal, mood normal. [] Current Patient Data Vital Signs Vital Signs Date Time Temp Pulse Resp B/P (MAP) Pulse Ox O2 Delivery O2 Flow Rate FiO2 02/14/19 21:11 58 20 134/63 (86) 94 Room Air 02/14/19 18:47 98.2 98.2 EKG EKG [] Radiology/Procedures Radiology/Procedures PROCEDURE: VENOUS LOWER EXTREMITY LEFT EXAM: Left lower extremity venous Doppler sonogram. HISTORY: Pain and swelling. TECHNIQUE: Hester scale and color Doppler sonographic evaluation of the left lower extremity veins with spectral waveform analysis was performed. FINDINGS: There is normal color flow, normal compressibility and there are normal spectral waveforms in the common femoral, superficial femoral, popliteal, posterior tibial and greater saphenous veins. IMPRESSION: No Doppler evidence of lower extremity deep venous thrombosis. [] Course & Med Decision Making Course & Med Decision Making Pertinent Labs and Imaging studies reviewed. (See chart for details) ED course: Patient is a 73-year-old female who presented to the emergency room with reports of swelling in her lower left extremity for the last 3 days. Patient states she is concerned that there was a blood clot in her leg due to her recent surgery. She denied any fever, numbness, tingling, or weakness of the affected extremity. She denied any shortness of breath, chest pain, or palpitations. There was no redness, or warmth of the affected extremity, no suspicion for cellulitis. Ultrasound revealed no DVT in the lower left extremity. Patient was advised of the negative exam, she was encouraged to wear ALLEY hose at the nursing facility and follow up with her primary care doctor next week, return to the ER symptoms worsen. Patient verbalized an understanding of home care, medications, follow-up, and return to ED instructions and was in agreement with the plan of care. [] Dragon Disclaimer Dragon Disclaimer This electronic medical record was generated, in whole or in part, using a voice recognition dictation system. Departure Departure Impression: Primary Impression: Left leg swelling Disposition: HOME, SELF-CARE Condition: STABLE Referrals: WILLIS SCANLON MD (PCP) Patient Instructions: Peripheral Edema Additional Instructions: Recommend use of compression stockings. Follow up with primary care doctor next week. Return to the ER if symptoms worsen. SHEEBA SOOD SPRING FITTER Feb 14, 2019 20:50
[2019-02-14 21:11] VITALS: BP 134/63
== END 2019-02-14 22:25 | disposition home or self-care (01) ==
LOC: ER 18:47
DX: R22.42 Localized swelling, mass and lump, left lower limb (principal); I10 Essential (primary) hypertension; Z98.890 Other specified postprocedural states; Z88.4 Allergy status to anesthetic agent; Z91.040 Latex allergy status; Z91.041 Radiographic dye allergy status; Z88.5 Allergy status to narcotic agent
CPT/HCPCS: 93971; 99284-25

== ENCOUNTER → 2021-03-28 | Outpatient (CLI) | payer MEDICARE ==
[2020-10-03 11:00] VITALS: BP 131/46
[~2021-03-28] MED LIST changes: +CIPR500T94 PO; +METR500T PO; +MULT-445 PO; -MULT1TAB52 PO; -OMEP40CA45 PO; +OMEP40CA7 PO; +PRAM0.255 PO; +PRAM1TAB36 PO
--- NOTE | 2021-03-28 16:08 | KCIC ---
EXAMINATION: Magnetic resonance imaging (MRI) of the lumbar spine without contrast 03/28/2021 12:35 PM HISTORY: Right-sided lumbar radiculopathy TECHNIQUE: Multiplanar multi-weighted MRI of the lumbar spine was performed without intravenous contr ast using the standard lumbar spine protocol. Contrast information: None administered. COMPARISON: MRI lumbar spine 02/04/2019 FINDINGS: There is levoconvex scoliosis of the lumbar spine with apex levocurvature at L1-L2. Posterior fusion hardware is identified from L3 through L5 with bilateral pedicle screws and dual rods. Vertebral body heights are maintained. Modic type I endplate degenerative changes are identified at L2-L3 with mode rate disc height loss. Moderate to advanced disc height loss at L1-L2. Mild disc height loss at T12-L 1. Moderate disc height loss at T11-T12 with Modic type II endplate degenerative changes. Moderate di sc height loss identified at L5-S1 with associated disc desiccation. Tarlov cyst is identified at S2 measuring 1.1 cm craniocaudal dimension. Conus medullaris terminates at L1-L2. Distal spinal cord sig nal intensity is normal in all sequences. There is no prevertebral edema. No paraspinal soft tissue a bnormality. Abdominal aorta is normal in caliber. T10-T11: There is mild disc bulge. Mild facet arthropathy. No significant neural foraminal or spinal canal stenosis. T11-T12: Right-sided perineural sheath diverticulum is identified. Disc is normal configuration. Mild facet arthropathy. No neuroforaminal or spinal canal stenosis. T12-L1: There is a disc bulge asymmetric to the left. Moderate left neuroforaminal stenosis. Mild lef t neuroforaminal stenosis. Right-sided perineural sheath diverticulum identified. No spinal canal paul nosis. L1-L2: There is a circumferential disc bulge. Mild facet arthropathy. Mild left and moderate right ne ural foraminal stenosis. There is mild right lateral recess stenosis. Mild spinal canal stenosis. L2-L3: Is a posterior disc osteophyte complex. Moderate right and mild left facet arthropathy. Severe right and moderate left neuroforaminal stenosis. Moderate spinal canal stenosis, exacerbated by epid ural lipomatosis. L3-L4: No significant disc herniation. Laminectomy changes decompressed the spinal canal. No residual spinal canal stenosis. There is posterior fusion. L4-L5: This level is fused posteriorly with laminectomy decompression. No residual spinal canal steno sis. L5-S1: Mild disc bulge asymmetric to the left. Moderate left and mild right neuroforaminal stenosis. Moderate left and moderate facet arthropathy. No spinal canal stenosis. IMPRESSION: Moderate degenerative changes of the lumbar spine as described in detail above. Posterior fusion from L3 through L5 with laminectomy decompression without residual spinal canal stenosis. There is increa sed disc height loss and degenerative disc disease at L2-L3 with increased spinal canal stenosis. Electronically signed by: Diane Zaidi MD (03/28/2021 4:05 PM) [id number]
== END ==
LOC: KCIC MRI 12:14
PROVIDERS: ATTEND Family Medicine
DX: G96.191 Perineural cyst (principal); M47.26 Other spondylosis with radiculopathy, lumbar region; M51.27 Other intervertebral disc displacement, lumbosacral region; M48.8X7 Other specified spondylopathies, lumbosacral region; M48.07 Spinal stenosis, lumbosacral region; M25.78 Osteophyte, vertebrae; M51.36 Other intervertebral disc degeneration, lumbar region; Z98.1 Arthrodesis status
CPT/HCPCS: 72148

== ENCOUNTER → 2021-04-18 | Outpatient (CLI) | payer MEDICARE ==
[2020-10-03 11:00] VITALS: BP 131/46
--- NOTE | 2021-04-18 14:11 | KCIC ---
CT LUMBAR SPINE WO History:Reason: Neuropathy,restless legs, Rt sided LBP, 2 previous surgeries. / Spl. Instructions: / History: Back surgeries 2018 and 2019. Technique: Noncontrast CT was performed of the lumbar spine. Multiplanar reconstructions were perform ed. Exposure: One or more of the following individualized dose reduction techniques were utilized for thi s examination: 1. Automated exposure control 2. Adjustment of the mA and/or kV according to patient size 3. Use of iterative reconstruction technique. Comparison: MRI March 28, 2021 Findings: Moderate leftward curvature the lumbar spine centered at L2. Posterior stabilization L3-L5. Posterior decompression L3 and L4. Normal vertebral body height. No acute fracture. Degenerative endplate scle rosis most prominent L1-L2 and L2-L3. Mild retrolisthesis L1 on L2 and L2 on L3. Grade 1 anterolisthe sis L3 on L4 and L4 on L5 as well as L5 on S1. T12-L1: Small disc bulge. No canal or neuroforaminal narrowing. L1-L2: Posterior disc osteophyte complex. No canal narrowing. Mild right neuroforaminal narrowing. V acuum disc phenomenon. L2-L3: Vacuum disc phenomenon. Retrolisthesis. Posterior disc osteophyte complex. Moderate canal lola rowing. Subarticular recess narrowing. Moderate right and mild left neuroforaminal narrowing. L3-L4: Anterolisthesis. Posterior decompression. No canal narrowing. No neuroforaminal narrowing. L4-L5: Anterolisthesis. Broad-based disc bulge. Posterior decompression. Evaluation of the canal is degraded by beam hardening artifact from hardware. No neuroforaminal narrowing. L5-S1: Vacuum disc phenomenon. Anterolisthesis. Disc bulge. Moderate facet arthropathy. No canal lola rowing. Mild bilateral neuroforaminal narrowing. Impression: 1. Postoperative changes posterior stabilization L3-L5. 2. Lumbar spondylosis most prominent superior junctional level L2-L3. 3. Retrolisthesis L2 on L3 with moderate canal narrowing. 4. Neuroforaminal narrowing most prominent L2-L3. Electronically signed by: Kumar Torres DO (04/18/2021 2:08 PM) [facility]
== END ==
LOC: KCIC CT 10:08
PROVIDERS: ATTEND Family Medicine
DX: M47.816 Spondylosis without myelopathy or radiculopathy, lumbar region (principal); M48.07 Spinal stenosis, lumbosacral region; M51.27 Other intervertebral disc displacement, lumbosacral region; M48.8X7 Other specified spondylopathies, lumbosacral region; M43.17 Spondylolisthesis, lumbosacral region; G62.9 Polyneuropathy, unspecified; G25.81 Restless legs syndrome; Z98.890 Other specified postprocedural states
CPT/HCPCS: 72131

== ENCOUNTER → 2021-05-02 | Outpatient (CLI) | payer MEDICARE ==
[2020-10-03 11:00] VITALS: BP 131/46
[~2021-05-02] MED LIST changes: +IOHEXOL 180 MG/ML 10 ML VIAL. ONE
--- NOTE | 2021-05-02 12:49 | PDOC1 ---
INITIAL PAIN CONSULT DATE OF SERVICE: DOS: DATE: 05/02/21 TIME: 12:40 CHIEF COMPLAINT: Chief Complaint: Low back and right lower extremity pain HISTORY OF PRESENT ILLNESS: 75-year-old female presents history of pain in the low back and right lower extremity status post fall at [facility] on a sidewalk which was jagged patient fell onto her left side causing significant pain in the low back as well as her left shoulder. Patient reports did not have pain in either of these prior to the fall and this happened of October 2020. Patient reports the pain now is persistence she has had chiropractic treatment and acupuncture as well as trigger point injections with her primary care physician all of which have been very temporary and improving her condition physical therapy also was not significantly helpful in decreasing the pain long-term as well. Patient is taking hydrocodone also using ice and heat which helps but only temporarily as well. Patient reports the pain is constant sharp in the back shooting in the right lower extremity mostly in the posterior gluteus posterior thigh change during the day worse with activity standing walking with some tingling numbness in the right leg as well patient reports is better with sitting or laying down but wakes her from sleep about 2-3 times a night can affect her bladder control as well she has noticed some increased urgency but no overt incontinence. Naz ent reports that her affect ability to walk she is been using a cane has that with her today and is using her left hand. Patient is had previous surgery with lumbar fusion from L2-3 to L5 with good results from 2019. Patient did have an MRI scan of the lumbar spine showing postoperative posterior stabilization L3-5 lumbar spondylosis at the superior junctional level of L2-L3 as well as vacuum disc phenomenon L5-S1 with anterolisthesis and disc bulge with mild bilateral neuroforaminal narrowing. Patient reports no loss of motor function but significant fatigability in the right lower extremity since the injury. PAST MEDICAL HISTORY: PMH: Hypertension, hearing loss, cigarette smoking PREVIOUS SURGERIES: Past Surgical Hx: Hysterectomy, bilateral knee surgery, lumbar fusion, cervical fusion CURRENT MEDICATIONS: Current Meds: Active Scripts Medications Dose Route/Sig Max Daily Dose Days Date Category Aspirin 81 Mg Tab.chew 1 Tab PO DAILY 10/02/20 Reported Mirapex (Pramipexole Di-Hcl) 0.25 Mg Tablet 0.25 Mg PO TID 8/8/21 Reported Multivitamins (Multivitamin) 1 Each Tablet 1 Tab PO DAILY 07/15/18 Reported Omeprazole 40 Mg Capsule. 1 Cap PO DAILY 07/15/18 Reported Diovan (Valsartan) 80 Mg Tablet 80 Mg PO DAILY 07/15/18 Reported ALLERGIES; Allergies: Coded Allergies: fentanyl (Verified Allergy, Intermediate, 02/06/19) hypotension latex (Verified Allergy, Intermediate, Rash, 02/06/19) I S O L A T I O N *CONTACT* (Verified Allergy, Unknown, 10/06/20) ESBL Rouabxv-ZQL-CbF Reductase Inhibitor (Verified Adverse Reaction, Intermediate, muscle pain, 02/06/19) codeine (Verified Adverse Reaction, Intermediate, Nausea and Vomiting, 02/06/19) FAMILY HISTORY: Family Hx: Heart disease, hypertension SOCIAL HISTORY: Social Hx: Patient drinks about 1 glass of alcohol a month smokes cigarettes less than half a pack a day has for 50 years smokes marijuana daily lately with her pain increased, is lives with her lives locally in [facility]. REVIEW OF SYSTEMS: ROS: Positive for those items mentioned in history of present illness, all systems are reviewed, otherwise negative ,and are complete full and well-documented on patient's chart. PHYSICAL EXAM: VS: Blood pressure is 151/72 pulse 61 respirations 18 temperature is 97.2 F height is 5 feet 5 inches weight is 203 pounds. PE: PHYSICAL EXAMINATION: GENERAL: The patient is awake, alert, oriented, appropriate, very pleasant in demeanor HEENT: Shows normocephalic, atraumatic. Extraocular movements are intact and symmetrical. Oral cavity: Mucous membranes moist and pink. Dentition is intact. NECK: Shows anterior throat supple without palpable lymphadenopathy noted. Swallow reflex symmetrical. CHEST: Shows normal on inspection. Breath sounds are clear bilaterally, coarse but no rales or rhonchi auscultated. HEART: Shows S1, S2 clear. No murmurs auscultated. ABDOMEN: Soft, nontender, nondistended. No palpable organomegaly is noted. BACK: Shows spine grossly in the midline. Normal-appearing cervical lordotic curvature. There is slightly increased thoracic kyphosis, some moderate flattening of the lumbar lordotic curvature, with well-healed midline surgical scar. Lumbar paraspinous muscles show symmetrical on inspection, on palpation shows some moderate tenderness diffusely throughout the upper, middle and lower distribution of the paraspinous muscles bilaterally and also into the lower thoracic paraspinous musculature, firm and tender, but without specific trigger points, without radiation of pain. The patient has good rotational motion of the lumbar spine, both laterally as well as extension and flexion without significant difficulty. No tenderness over the spinous processes, sacrum or sacroiliac regions. EXTREMITIES: Lower extremities show deep tendon reflexes 1+ in the patellar and tendo calcaneus tendons. Motor exam is 4 on a scale of 5 with right dorsiflexion, extension, quadriceps and hamstring flexion and 5/5 on the left. Peripheral pulses are 1+ posterior tibial. No peripheral edema is noted bilaterally. Lower extremities are warm and dry to touch, equal in color and appearance. Straight leg raise noted to be positive on the right about 35 degrees, left side is negative. Gaenslen's and Stanley's maneuvers are negative bilaterally. The patient is able to stand but needs assistance from the arms of the chair to get up walks with a favoring gait does appear to favor the right lower extremity and has a cane she is not ambulating her left hand. SKIN: Shows warm and dry, good turgor. No edema. No sores, rashes or bruising throughout. IMPRESSION: Impression: 75-year-old female with fall injury October 2020 with subsequent low back and right radicular pain. MRI scan lumbar spine as noted Hypertension Cigarette smoking Plan: Options discussed with patient including conservative managements continued physical therapies and interventional techniques. Patient would like to pursue interventional techniques as she is tried these other modalities without significant long-term relief. We discussed a lumbar epidural steroid injection using descriptions of the procedure. Risks were discussed including but not limited to: Bleeding, infection, possibility of epidural hematoma and subsequent neurological compromise, dural puncture, headaches, spinal cord and/or nerve damage, side effects of steroid medication, and poor results regarding pain control. Patient understands and wished to proceed. Patient will return to clinic in approximately 2 weeks for follow-up, was counseled as to return appointment, activity level, and side effect to be aware of. Procedure is lumbar epidural steroid injection under local anesthetic using sterile prep and drape at the L5-S1 level using C-arm fluoroscopic guidance in both AP and lateral views medications injected is 20 mg dexamethasone +10mL preservative-free normal saline and 2 mL contrast- condition at discharge is stable patient tolerated procedure well had no complications. KWASI PHAM MD May 02, 2021 12:49
--- NOTE | 2021-05-02 12:51 | PDOC4 ---
Procedure Note: ICD 10 Code: ICD 10 Code: M54.17 M51.87 M 96 point Procedure Note: Patient was consented for lumbar epidural steroid injection with fluoroscopic guidance. Risks were discussed including but not limited to: Bleeding, infection, possibility of epidural hematoma and subsequent neurological compromise, dural puncture, headaches, spinal cord and/or nerve damage, side effects of steroid medication, and poor results regarding pain control. Patient understands and wished to proceed. Procedure is lumbar epidural steroid injection under local anesthetic using sterile prep and drape at the L5-S1 level using C-arm fluoroscopic guidance in both AP and lateral views medications injected is 20 mg dexamethasone +10mL preservative-free normal saline and 2 mL contrast- condition at discharge is stable patient tolerated procedure well had no complications. KWASI PHAM MD May 02, 2021 12:51
== END | disposition home or self-care (01) ==
LOC: PNCL 09:11
PROVIDERS: ATTEND Anesthesiology
DX: M51.17 Intervertebral disc disorders with radiculopathy, lumbosacral region (principal); M96.1 Postlaminectomy syndrome, not elsewhere classified; I10 Essential (primary) hypertension; E78.00 Pure hypercholesterolemia, unspecified; G47.30 Sleep apnea, unspecified; K21.9 Gastro-esophageal reflux disease without esophagitis; M19.90 Unspecified osteoarthritis, unspecified site; M10.9 Gout, unspecified; Z85.828 Personal history of other malignant neoplasm of skin; Z98.51 Tubal ligation status; Z90.710 Acquired absence of both cervix and uterus; Z98.890 Other specified postprocedural states; Z79.82 Long term (current) use of aspirin; Z72.89 Other problems related to lifestyle; Z79.899 Other long term (current) drug therapy; Z87.891 Personal history of nicotine dependence; Z82.49 Family history of ischemic heart disease and other diseases of the circulatory system; Z88.6 Allergy status to analgesic agent; Z88.5 Allergy status to narcotic agent; Z91.040 Latex allergy status; Z88.8 Allergy status to other drugs, medicaments and biological substances
CPT/HCPCS: 62323; G0463; Q9965

== ENCOUNTER → 2021-05-16 | Outpatient (CLI) | payer MEDICARE ==
[2020-10-03 11:00] VITALS: BP 131/46
[~2021-05-16] MED LIST changes: +DEXAMETHASONE PRES.FREE 10 MG/ML VIAL. ONE; -IOHEXOL 180 MG/ML 10 ML VIAL. ONE
--- NOTE | 2021-05-16 12:20 | PDOC ---
Progress Note - Pain Clinic Date of Service: DOS: DATE: 05/16/21 TIME: 12:14 Diagnosis: Dx: Lumbar radiculopathy with lumbar degenerative disc disease and lumbar postlaminectomy syndrome History or Present Illness: HPI: 75-year-old female returns status post lumbar epidural steroid injection x1. Patient reports near her percent improvement for the first 3 to 4 days after the injection but the pain returned gradual over the next 3 to 4days essentially to its baseline level in the low back and the right lower extremity. Patient reports is rating the posterior gluteus posterior thigh posterior calf and around the right lateral aspect of the hip as well patient reports is worse with walking standing changing positions has been disturbing her from sleep about every 2 hours or so patient reports prior to that that she was doing much better for the first few days with distance walking doing household activities sleeping better again the results were fairly short-lived and the pain returned fairly significantly patient reports her pain is a 6 on scale 10 is worst average and least and is a 6 today. Patient reports no bowel or bladder incontinence but has significant pain on the lateral aspect of the right lateral hip which she indicates by pointing to the right greater trochanter which is very sore and tender with walking standing especially getting up from seated position. Patient has some radiation from this area onto the lateral thigh as well. Physical Exam: VS: Blood pressure is 145/72 pulse 67 respirations 18 temperature is 98.1 F height is 5 feet 5 inches weight is 201 pounds. PE: PHYSICAL EXAMINATION: GENERAL: The patient is awake, alert, oriented, appropriate, very pleasant in demeanor. HEENT: Shows normocephalic, atraumatic. Extraocular movements are intact and symmetrical. Oral cavity: Mucous membranes moist and pink. NECK: Shows anterior throat supple without palpable lymphadenopathy noted. Swallow reflex symmetrical. CHEST: Shows normal on inspection. Breath sounds are clear bilaterally. HEART: Shows S1, S2 clear. No murmurs auscultated. ABDOMEN: Soft, nontender, nondistended. No palpable organomegaly is noted. BACK: Shows spine grossly in the midline. Normal-appearing cervical lordotic curvature. There is mildly increased thoracic kyphosis, some flattening of the lumbar lordotic curvature, with well-healed midline surgical scarring noted. Lumbar paraspinous muscles show symmetrical on inspection, on palpation shows some moderate tenderness diffusely throughout the upper, middle and lower distribution of the paraspinous muscles without specific trigger points, without radiation of pain. The patient has good rotational motion of the lumbar spine, both laterally as well as extension and flexion with moderate pain in the low back bilaterally but without radiation. EXTREMITIES: Lower extremities show deep tendon reflexes 1+ in the patellar and tendo calcaneus tendons. Motor exam is 4 on a scale of 5 with right dorsiflexion, extension, quadriceps and hamstring flexion and 5/5 on the left. Peripheral pulses are 1+ posterior tibial. Patient's right hip shows significant tenderness over the right greater trochanter with even moderate palpation and some mild radiation to the right lateral to mid thigh. No perip heral edema is noted bilaterally. Lower extremities are warm and dry. SKIN: Shows warm and dry, good turgor. No edema. No sores, rashes or bruising throughout. Procedure: Procedure: Options were discussed with the patient. Patient's old chart was reviewed as was her current medication regimen updated, and current review of systems updated today as well. We will proceed with a lumbar epidural steroid injection today with fluoroscopic guidance. Risks were discussed including but not limited to: Bleeding, infection, possibility of epidural hematoma and subsequent neurological compromise, dural puncture, headaches, spinal cord and/or nerve damage, side effects of steroid medication, and poor results regarding pain control. Patient understands and wished to proceed. Patient will return to the clinic in approximately 2 weeks for follow-up, was counseled as to return appointment, activity level, and side effect to be aware of. We discussed patient's right greater trochanter and she will do some stretching strengthening exercises we discussed and see if this decreases some of the pain intensity. Medication Injected: Med Injected: Procedure is lumbar epidural steroid injection under local anesthetic using sterile prep and drape at the L5-S1 level using C-arm fluoroscopic guidance in both AP and lateral views medications injected is 20 mg dexamethasone +10mL preservative-free normal saline and 2 mL contrast- condition at discharge is stable patient tolerated procedure well had no complications. Condition at Discharge: Condition at Discharge: Condition at discharge is stable, patient Cyndy the procedure well and had no complications. KWASI PHAM MD May 16, 2021 12:20
--- NOTE | 2021-05-16 12:20 | PDOC4 ---
Procedure Note: ICD 10 Code: ICD 10 Code: M54.17 M51.87 M 96.1 Procedure Note: Patient was consented for lumbar epidural steroid injection fluoroscopic guidance. Risks were discussed including but not limited to: Bleeding, infection, possibility of epidural hematoma and subsequent neurological compromise, dural puncture, headaches, spinal cord and/or nerve damage, side effects of steroid medication, and poor results regarding pain control. Patient understands and wished to proceed. Procedure is lumbar epidural steroid injection under local anesthetic using sterile prep and drape at the L5-S1 level using C-arm fluoroscopic guidance in both AP and lateral views medications injected is 20 mg dexamethasone +10mL preservative-free normal saline and 2 mL contrast- condition at discharge is stable patient tolerated procedure well had no complications. KWASI PHAM MD May 16, 2021 12:20
== END | disposition home or self-care (01) ==
LOC: PNCL 11:12
PROVIDERS: ATTEND Anesthesiology
DX: M51.16 Intervertebral disc disorders with radiculopathy, lumbar region (principal); M96.1 Postlaminectomy syndrome, not elsewhere classified; I10 Essential (primary) hypertension; G47.30 Sleep apnea, unspecified; E78.00 Pure hypercholesterolemia, unspecified; K21.9 Gastro-esophageal reflux disease without esophagitis; M19.90 Unspecified osteoarthritis, unspecified site; M10.9 Gout, unspecified; Z90.710 Acquired absence of both cervix and uterus; Z98.51 Tubal ligation status; Z98.890 Other specified postprocedural states; Z79.899 Other long term (current) drug therapy; Z72.89 Other problems related to lifestyle; Z79.82 Long term (current) use of aspirin; Z88.5 Allergy status to narcotic agent; Z91.040 Latex allergy status; Z88.8 Allergy status to other drugs, medicaments and biological substances
CPT/HCPCS: 62323; J1100

== ENCOUNTER → 2021-06-05 | Outpatient (CLI) | payer MEDICARE ==
[2020-10-03 11:00] VITALS: BP 131/46
[~2021-06-05] MED LIST changes: +BUPIVACAINE MPF 0.25% 10 ML VIAL. ONE; +IOHEXOL 180 MG/ML 10 ML VIAL. ONE
--- NOTE | 2021-06-05 11:59 | PDOC ---
Progress Note - Pain Clinic Date of Service: DOS: DATE: 06/05/21 TIME: 11:54 Diagnosis: Dx: Right greater trochanteric bursitis Lumbar radiculopathy lumbar degenerative disease and lumbar postlaminectomy syndrome History or Present Illness: HPI: 75-year-old female returns for follow-up status post lumbar epidural steroid injection x2. Patient reports she did very well after the last injection with about 50% overall improvement in the low back and right lower extremity pain patient's main complaint today however is some pain in the lateral aspect of the upper left thigh and lateral hip significant pain even to light touch very severe sharp pain radiating to the lateral aspect of the thigh to just above the knee with contact pain and with walking patient reports much worse with stepping to her right side as well as walking and swinging her leg forward with stride. Patient reports that sharp and shooting radiating in the lateral aspect of the thigh as well patient reports that her pain in her back is doing much better rated as a 6 on scale 10 is worse over the past week for an average 4 to [place] is a 4 today. Patient reports her right hip however significant she can at least sleep on her right side because of the pain. Patient reports no bowel or bladder incontinence no new motor deficits. Physical Exam: VS: Blood pressure 156/88 pulse 60 respiration 16 temperature 98.0 F weight is 201 pounds. PE: PHYSICAL EXAMINATION: GENERAL: The patient is awake, alert, oriented, appropriate, very pleasant in demeanor HEENT: Shows normocephalic, atraumatic. Extraocular movements are intact and symmetrical. Oral cavity: Mucous membranes moist and pink. Dentition is intact. NECK: Shows anterior throat supple without palpable lymphadenopathy noted. Swallow reflex symmetrical. CHEST: Shows normal on inspection. Breath sounds are clear bilaterally. HEART: Shows S1, S2 clear. No murmurs auscultated. ABDOMEN: Soft, nontender, nondistended. No palpable organomegaly is noted. BACK: Shows spine grossly in the midline. Normal-appearing cervical lordotic curvature. There is slightly increased thoracic kyphosis, some mild flattening of the lumbar lordotic curvature. Lumbar paraspinous muscles show symmetrical on inspection, on palpation shows some moderate tenderness diffusely throughout the upper, middle and lower distribution of the paraspinous muscles, but without specific trigger points, without radiation of pain. The patient has good rotational motion of the lumbar spine, both laterally as well as extension and flexion without significant difficulty. EXTREMITIES: Lower extremities show deep tendon reflexes 1+ in the patellar and tendo calcaneus tendons. Motor exam is 4 on a scale of 5 with right dorsiflexion, extension, quadriceps and hamstring flexion and 5/5 on the left. Peripheral pulses are 1 posterior tibial. No peripheral edema is noted bilaterally. Lower extremities are warm and dry. Patient's right leg shows significant tenderness over the right greater trochanter with even moderate palpation with some mild radiation to the lateral aspect of the quadricep to the knee. This is also worse with abduction of the hip with resistance on the right side only left side is nontender. SKIN: Shows warm and dry, good turgor. No edema. No sores, rashes or bruising throughout. Procedure: Procedure: Options were discussed with the patient. Patient's old chart was reviewed as her current medication regimen updated current review of systems updated today as well. We will proceed with a right greater trochanteric bursa injection with fluoroscopic guidance. Risks discussed included but not limited to bleeding infection possibility of intravascular injection sequelae spread local anesthetic and numbness side effects steroid medications exposure to fluoroscopy, and poor results regarding pain control. Patient understands wished to proceed. Patient will return to clinic in approximately 2 weeks for follow-up, was counseled as to return appointment, activity level, and side effect to be aware of. Medication Injected: Med Injected: Under sterile prep and drape patient in supine position using C-arm fluoroscopic guidance patient's right greater trochanter was visualized. Using 25-gauge needle and 1% lidocaine area lateral to the greater trochanter was anesthetized. Using a 25-gauge needle under direct fluoroscopic visualization the right greater trochanteric bursa was contacted with negative aspiration noted. 1.5 cc of contrast was then injected with good local spread at the greater trochanteric bursa without washout bilaterally. At this time, a solution containing 3 cc of 0.25% bupivacaine and 60 mg Depo-Medrol was then injected into the greater trochanteric bursa. Patient tolerated the procedure well and had no complications. Condition at Discharge: Condition at Discharge: Condition at discharge stable, patient tolerated procedure well and had no complications. KWASI PHAM MD Jun 05, 2021 11:59
--- NOTE | 2021-06-05 12:00 | PDOC4 ---
Procedure Note: ICD 10 Code: ICD 10 Code: M70.61 Procedure Note: Patient is consented for right greater trochanteric bursa injection with fluoroscopic guidance. Risk were discussed including but not limited to bleeding infection possibility of intravascular injection sequelae spread of local anesthetic numbness side effects of steroid medication exposure to fluoroscopy and poor results regarding pain control. Patient understands wishes to proceed. Under sterile prep and drape patient in supine position using C-arm fluoroscopic guidance patient's right greater trochanter was visualized. Using 25-gauge needle and 1% lidocaine area lateral to the greater trochanter was anesthetized. Using a 25-gauge needle under direct fluoroscopic visualization the right greater trochanteric bursa was contacted with negative aspiration noted. 1.5 cc of contrast was then injected with good local spread at the greater trochanteric bursa without washout bilaterally. At this time, a solution containing 3 cc of 0.25% bupivacaine and 60 mg Depo-Medrol was then injected into the greater tr ochanteric bursa. Patient tolerated the procedure well and had no complications. KWASI PHAM MD Jun 05, 2021 12:00
== END | disposition home or self-care (01) ==
LOC: PNCL 10:30
PROVIDERS: ATTEND Anesthesiology
DX: M70.61 Trochanteric bursitis, right hip (principal); M51.16 Intervertebral disc disorders with radiculopathy, lumbar region; M96.1 Postlaminectomy syndrome, not elsewhere classified; I10 Essential (primary) hypertension; E78.00 Pure hypercholesterolemia, unspecified; G47.30 Sleep apnea, unspecified; K21.9 Gastro-esophageal reflux disease without esophagitis; M19.90 Unspecified osteoarthritis, unspecified site; M10.9 Gout, unspecified; Z85.828 Personal history of other malignant neoplasm of skin; Z98.51 Tubal ligation status; Z90.710 Acquired absence of both cervix and uterus; Z98.890 Other specified postprocedural states; Z79.899 Other long term (current) drug therapy; Z79.82 Long term (current) use of aspirin; Z72.89 Other problems related to lifestyle; Z88.5 Allergy status to narcotic agent; Z88.6 Allergy status to analgesic agent; Z91.040 Latex allergy status; Z88.8 Allergy status to other drugs, medicaments and biological substances
CPT/HCPCS: 20610; 77002; J1100; J3490; Q9965